=== PATIENT | female | born 1945 | race Caucasian/White ===

== ENCOUNTER 2023-05-01 05:55 | Inpatient (IN) | payer MEDICARE, MEDICAID, SELFPAY ==
[2023-05-01] VITALS (64 sets, daily range): BP systolic 140–193; BP diastolic 78–150; PULSE 98–135; RESP 14–52; TEMP 36.8; O2SAT 91–100; BMI 17.1
--- NOTE | 2023-05-01 06:00 | XRR_ITS ---
PROCEDURE INFORMATION: Exam: XR Chest Exam date and time: 05/01/2023 6:21 AM Age: 77 years old Clinical indication: Cough and dyspnea; Additional info: Dyspnea/cough TECHNIQUE: Imaging protocol: Radiologic exam of the chest. Views: 1 view. COMPARISON: No relevant prior studies available. FINDINGS: Lungs: Unremarkable. No consolidation. Pleural spaces: Unremarkable. No pleural effusion. No pneumothorax. Heart/Mediastinum: Unremarkable. No cardiomegaly. Bones/joints: Unremarkable. XR/XR chest 1V portable [id number] IMPRESSION: No acute findings.
--- NOTE | 2023-05-01 06:02 | W.ED.GENADLT ---
HPI - General Adult General: Chief complaint: Neuro Symptoms/Deficit Stated complaint: AMS Time Seen by Provider: 05/01/23 05:58 Source: patient Mode of arrival: EMS History of Present Illness: 77-year-old female presents to the emergency room via EMS she is cachectic in appearance completely altered unable to give any history. History from EMS per the family she was walking talking behaving normally yesterday and woke up altered this morning. She will cry out with any stimuli but makes no verbal responses. Does not follow any commands. No other medical history is known. There is no history in her old EMR either. 2 nights ago patient began vomiting was mostly bedridden yesterday and this morning was nonresponsive. No report of hematemesis or coffee-ground emesis or hematochezia from EMS. I was able to contact a family member Aruna earl (phone number [phone]). She related that the patient usually lives in [facility] time is very she sees a Dr. Lopez there at [place], [place]. daughter has limited knowledge of her past medical history. She states that the patient usually lives in [place], [place] and was visiting here. She had 2 antibiotics with her Bactrim which was prescribed on May 04, 2023 and clindamycin which was 300 mg 3 times a day prescribed on April 23, 2023 there were 19 tablets left of the clindamycin. These were prescribed by Malcolm Quigley a nurse practitioner at a [facility] with [facility]. The daughter believes it was related to the wound on the back of the left hand but is not completely certain. We did call there and talk to the warehouse team leader they advised us that we would not be able to get any past medical records until tomorrow even if we were able to get family to sign a release today. The daughter related that the patient has a history of asthma hypertension and hypothyroidism. She thinks she may have previously had a stroke she is not aware that she is diabetic has any diagnosis of cancer. She states that over the last several months she has lost a significant amount of weight but she says everyone in her family has a very small body habitus. She does relate that the patient is a smoker and is . Sometime in the last year or 2 the patient had a traumatic injury to her left leg the daughter describes it as having been crushed but she is not sure if there are any fractures. She evidently underwent several procedures for this and there was a question whether or not she would be able to ambulate again but she eventually was able to walk and states that up until 2 days ago patient was ambulating independently. She does believe that the patient has had some kidney and bladder issues in the past but does not have any specific knowledge as to what those were. At one time she was prescribed oxygen but has not been using it regularly to the best of the daughter's knowledge. The daughter states she was given power of civil litigation attorney along with the patient's granddaughter at the time of the leg injury. She states she signed some paperwork at the hospital that restricted her only and that she could not take her mother outside of the state [facility] but she could not tell me anything else about the circumstances of this paperwork or the extent of her power of civil litigation attorney status. She the daughter Aruna is the only living sibling. She does state that she wants her mother to be Do Not Recussitate that they have talked about in the past and the patient did not want to be on a ventilator or have CPR. Onset (ago): unknown Review of Systems General: Reports: ROS unobtainable due to medical condition and ROS unobtainable due to mental status PFS ED PFSH: Medical History (Updated 05/02/23 @ 05:37 by Zain Whitten DO) Crush injury of leg Asthma HTN (hypertension) Hypothyroid Surgical History (Updated 05/01/23 @ 10:11 by Presley Pacheco MD) History of surgery on lower extremity Social History (Updated 05/01/23 @ 10:11 by Presley Pacheco MD) Smoking and tobacco/nicotine status: current every day tobacco/nicotine user Marital status: / Physical Exam Narrative: EXAM NARRATIVE: Patient is extremely cachectic with temporal wasting. Wasting significant F in the face that the motion of the coronoid process of the mandible can be tracked when she moves her mandible. Examination of the back buttocks no decubitus ulcers noted Const: EXAM LIMITATIONS: altered mental status GENERAL APPEARANCE: disheveled, ill appearing, frail appearing and appears older than stated age NUTRITIONAL APPEARANCE: cachectic ORIENTATION/CONSCIOUSNESS: Yes awake HENMT: COMMON NORMALS: normocephalic and atraumatic HEAD & SCALP: normocephalic and atraumatic Resp: COMMON NORMALS: normal respiratory effort, No retractions, No use of accessory muscles and clear to auscultation bilaterally AUSCULTATION: clear to auscultation bilaterally Cardio: COMMON NORMALS: regular rate, regular rhythm and No murmurs present (Cardio) RATE: regular rate RHYTHM: regular rhythm GI: COMMON NORMALS: Soft to palpation and No hepatosplenomegaly present AUSCULTATION: Yes normoactive bowel sounds PALPATION: Yes Soft to palpation, No Tenderness to palpation present (GI), No Guarding due to palpation present (GI) and Yes No hepatosplenomegaly present Extremity: COMMON NORMALS: normal to inspection and capillary refill normal Skin: OTHER: Ulcerated lesion on the dorsum of the left hand granulation tissue at the edges mucous AXicare at the base lesion is full-thickness. It appears to be from self excoriation Course Vital Signs: Vital signs: Vital Signs Temperature 97.5 F L 05/02/23 04:30 Pulse Rate 140 H 05/02/23 04:30 Respiratory Rate 22 H 05/02/23 04:20 Blood Pressure 164/86 05/02/23 04:30 Pulse Oximetry 99 05/02/23 04:30 Oxygen Delivery Me thod Nasal Cannula 05/02/23 04:30 Oxygen Flow Rate 2 05/02/23 04:30 MDM - General Adult Medical Decision Making We attempted to contact the convenience clinic to talk to a provider to try to get some more past medical history and even recent history on this patient however they did not call us back I do not think your convenience clinic was open today. Patient has acute kidney injury she is tachycardic and gets from volume contraction. Cover for sepsis however not finding source of infection at this time. Tox screening negative. Will admit discussed with hospitalist Medical Records I reviewed the patient's medical records. Lab Data I reviewed the patient's lab results. 05/02/23 04:35 05/02/23 04:35 Radiology Impressions Chest X-Ray 05/01/23 06:00 IMPRESSION: No acute findings. Head CT 05/01/23 06:12 IMPRESSION: Negative for acute intracranial pathology. Abdomen/Pelvis CT 05/01/23 07:05 IMPRESSION: 1. Nonobstructing 4.4 mm left renal calculus. 2. Diverticulosis of the sigmoid colon 3. Multiple splenic granulomas 4. Multilevel compression the endplates of thoracic lumbar bodies as described above. This is most severely seen at the L4 level. Laboratory Results WBC 12.21 10^3/uL (3.29-11.43) H 05/01/23 06:20 RBC 3.95 10^6/uL (3.85-5.65) 05/01/23 06:20 Hgb 12.80 g/dL (11.27-16.99) 05/01/23 06:20 Hct 38.4 % (36-47) 05/01/23 06:20 MCV 97.2 fl (85-98) 05/01/23 06:20 MCH 32.4 pg (27-33) 05/01/23 06:20 MCHC 33.3 g/dL (30-55) 05/01/23 06:20 RDW 13.6 % (12.1-15.1) 05/01/23 06:20 Plt Count 270 10^3/cmm (157-399) 05/01/23 06:20 MPV 9.8 fL (7.4-10.4) 05/01/23 06:20 Neut % (Auto) 82.9 % 05/01/23 06:20 Lymph % (Auto) 8.8 % 05/01/23 06:20 Kane % (Auto) 7.2 % 05/01/23 06:20 Eos % (Auto) 0.5 % 05/01/23 06:20 Baso % (Auto) 0.2 % 05/01/23 06:20 Neut # (Auto) 10.12 10^3/uL (1.8-7.7) H 05/01/23 06:20 Lymph # (Auto) 1.1 10^3/uL (0.8-4.8) 05/01/23 06:20 Kane # (Auto) 0.9 10^3/uL (0.2-0.9) 05/01/23 06:20 Eos # (Auto) 0.1 10^3/uL (0.0-0.8) 05/01/23 06:20 Baso # (Auto) 0.0 10^3/uL (0.0-0.1) 05/01/23 06:20 Nucleated RBC % (auto) 0 % 05/01/23 06:20 Nucleated RBCs # 0.0 /100WBC 05/01/23 06:20 PT 13.20 SECONDS (12.1-14.9) 05/01/23 06:20 INR 0.98 (0.8-1.2) 05/01/23 06:20 APTT 20.7 SECONDS (23.9-36.7) L 05/01/23 06:20 Specimen Type Arterial 05/01/23 06:18 Sample Site Brachial, right 05/01/23 06:18 ABG pH 7.35 (7.35-7.45) 05/01/23 06:18 ABG pCO2 44.8 mmHg (35-45) 05/01/23 06:18 ABG pO2 76.4 mmHg (80.0-100.0) L 05/01/23 06:18 ABG PO2/FiO2 Ratio 0 05/01/23 06:18 ABG HCO3 24.5 mmol/L (22-26) 05/01/23 06:18 ABG O2 Saturation 94.3 05/01/23 06:18 ABG Base Excess -1.4 mmol/L (-2.0-2.0) 05/01/23 06:18 Wade Test Pos 05/01/23 06:18 A-a O2 Gradient 9.3 mmHg (5-10) 05/01/23 06:18 Hematocrit 40.3 % (37-47) 05/01/23 06:18 Hgb O2 Saturation 93.1 % (95-100) L 05/01/23 06:18 Carboxyhemoglobin 0.9 %THgb (0.4-20.1) 05/01/23 06:18 Methemoglobin 0.4 % (0.4-1.5) 05/01/23 06:18 Total Hemoglobin 13.2 g/dL (12-16) 05/01/23 06:18 Sodium 143.0 mmol/L (131-143) 05/01/23 06:18 Potassium 4.4 mmol/L (3.5-5.0) 05/01/23 06:18 Glucose 136.0 mg/dL (70-115) H 05/01/23 06:18 Ionized Calcium 1.5 mmol/L (1.1-1.4) H 05/01/23 06:18 O2 Delivery Device Nc 05/01/23 06:18 O2 Liters/Min 2.0 % 05/01/23 06:18 FiO2 28.0 % 05/01/23 06:18 Software Testing Specialist ID [email or web address] 05/01/23 06:18 Sodium 138 mmol/L (136-145) 05/01/23 06:20 Potassium 4.3 mmol/L (3.5-5.1) 05/01/23 06:20 Chloride 99 mmol/L (98-107) 05/01/23 06:20 Carbon Dioxide 25 mmol/L (22-29) 05/01/23 06:20 Anion Gap 18.3 (5-19) 05/01/23 06:20 BUN 55 mg/dL (8-23) H 05/01/23 06:20 Creatinine 4.2 mg/dL (0.5-0.9) H 05/01/23 06:20 GFR Calculation Not Reportable 05/01/23 06:20 Glucose 134 mg/dL (65-115) H 05/01/23 06:20 Calculated Osmolality 303 mOsm/kg (285-295) H 05/01/23 06:20 Lactic Acid 2.1 mmol/L (0.5-2.2) 05/01/23 06:00 Lactic Acid (Sepsis) 2.1 mmol/L (0.5-2.2) 05/01/23 09:25 Calcium 11.7 mg/dL (8.5-10.5) H 05/01/23 06:20 Magnesium 2.0 mg/dL (1.7-2.3) 05/01/23 06:20 Total Bilirubin 0.2 mg/dL (0.15-1.2) 05/01/23 06:20 AST 16 U/L (0-32) 05/01/23 06:20 ALT 12 U/L (0-33) 05/01/23 06:20 Alkaline Phosphatase 79 U/L (35-105) 05/01/23 06:20 Ammonia 35 umol/L (11-51) 05/01/23 09:25 Creatine Kinase 166 U/L (26-192) 05/01/23 08:10 Troponin T Baseline 25 ng/L (0-10) H 05/01/23 06:00 Troponin T 120 Minute 23.12 ng/L (0-10) H 05/01/23 08:13 Delta Troponin T -1.88 ABS# (0-10) L 05/01/23 08:13 Troponin T Hi Sens 6Hr 26.05 ng/L (0-10) H 05/01/23 12:04 Troponin T Hi Sens 6Hr Delta 1.05 ng/L (0-12) 05/01/23 12:04 Total Protein 8.0 g/dL (6.6-8.7) 05/01/23 06:20 Albumin 4.1 g/dL (3.5-5.2) 05/01/23 06:20 Globulin 3.9 g/dL (1.3-4.6) 05/01/23 06:20 Lipase 19 U/L (13-60) 05/01/23 06:20 Vitamin B12 335 pg/mL (232-1245) 05/01/23 08:10 TSH 5.22 uIU/mL (0.27-4.20) H 05/01/23 08:13 Free T4 1.20 ng/dL (0.82-1.77) 05/01/23 08:13 PTH Intact 19.8 pg/mL (15-65) 05/01/23 06:10 Calcium (PTH Intact) 11.4 mg/dL (8.5-10.5) H 05/01/23 06:10 Urine Color Yellow (Yellow) 05/01/23 06:13 Urine Appearance Clear (CLEAR) 05/01/23 06:13 Urine pH 5 (5-7) 05/01/23 06:13 Ur Specific [place] 1.020 (1.005-1.030) 05/01/23 06:13 Urine Protein Trace (Negative) 05/01/23 06:13 Urine Glucose (UA) Norm (Normal) 05/01/23 06:13 Urine Ketones Negative (Negative) 05/01/23 06:13 Urine Blood Neg (Negative) 05/01/23 06:13 Urine Nitrate Negative (Negative) 05/01/23 06:13 Urine Bilirubin 2+ (Negative) H 05/01/23 06:13 Urine Urobilinogen Norm mg/dL (Negative) 05/01/23 06:13 Ur Leukocyte Esterase Negative (Negative) 05/01/23 06:13 Urine RBC None /hpf (0-2) 05/01/23 06:13 Urine WBC None /hpf (0-5) 05/01/23 06:13 Ur Squamous Epith Cells None /hpf (0-5) 05/01/23 06:13 Amorphous Sediment Not Reportable 05/01/23 06:13 Urine Bacteria Trace /hpf (NONE) 05/01/23 06:13 Salicylates < 0.3 mg/dL (3-10) L 05/01/23 06:20 Urine Opiates Screen Negative ng/mL (Negative) 05/01/23 06:13 Acetaminophen < 5.0 ug/mL (10-30) L 05/01/23 06:20 Ur Barbiturates Screen Negative ng/mL (Negative) 05/01/23 06:13 Ur Phencyclidine Scrn Negative ng/mL (Negative) 05/01/23 06:13 Ur Amphetamines Screen Negative ng/mL (Negative) 05/01/23 06:13 U Benzodiazepines Scrn Positive ng/mL (Negative) H 05/01/23 06:13 Urine Cocaine Screen Negative ng/mL (Negative) 05/01/23 06:13 U Marijuana (THC) Screen Negative ng/mL (Negative) 05/01/23 06:13 Ethyl Alcohol < 10 mg/dL (0-10) 05/01/23 06:20 Coronavirus 229E (PCR) Not detected (NOT DETECT) 05/01/23 06:46 Influenza Type A Ag negative (Negative) 05/01/23 06:46 Influenza Type B Ag negative (Negative) 05/01/23 06:46 SARS-CoV-2 (PCR) Not detected (NOT DETECT) 05/01/23 06:46 All radiology interpretation(s) finalized by discharge Discharge Plan Discharge Patient Disposition: Admitted As Inpatient Admit Provider: Presley Pacheco Clinical Impression: Acute encephalopathy, BARAK (acute kidney injury), Hypercalcemia, Hypothyroid, Cachexia Condition: Stable Coding Level of Care Code ED Oracle Etl Developer for Jose Luis Akbar
--- NOTE | 2023-05-01 06:12 | CTR_ITS ---
PROCEDURE INFORMATION: Exam: CT Head Without Contrast Exam date and time: 05/01/2023 6:24 AM Age: 77 years old Clinical indication: Altered mental status/memory loss TECHNIQUE: Imaging protocol: Computed tomography of the head without contrast. Radiation optimization: All CT scans at this facility use at least one of these dose optimization techniques: automated exposure control; mA and/or kV adjustment per patient size (includes targeted exams where dose is matched to clinical indication); or iterative reconstruction. COMPARISON: No relevant prior studies available. RADIATION DOSE METRICS: Total DLP (mGy-cm): 1006.78 FINDINGS: Brain: There is mild cerebral atrophy. There is moderate diffuse heterogeneity of the white matter attenuation, consistent with chronic white matter ischemic changes. Negative for acute intracranial hemorrhage. Negative for intracranial mass. Negative for midline shift of the brain. Lund matter and white matter interfaces are unremarkable. Cerebral ventricles: No ventriculomegaly. Paranasal sinuses: Visualized sinuses are unremarkable. No fluid levels. Mastoid air cells: Visualized mastoid air cells are well aerated. Bones/joints: Unremarkable. No acute fracture. Soft tissues: Unremarkable. CT/CT head wo con* [id number] IMPRESSION: Negative for acute intracranial pathology.
--- NOTE | 2023-05-01 06:13 | ECG_ITS ---
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 Measurements Intervals [place] Rate: 127 P: 71 MI: 166 QRS: 75 QRSD: 86 T: 63 QT: 396 QTc: 577 Interpretive Statements SINUS TACHYCARDIA ST DEVIATION AND MODERATE T-WAVE ABNORMALITY, CONSIDER ANTEROLATERAL ISCHEMIA [-0.1+ mV T-WAVE IN V3-V6] ST DEVIATION AND MARKED T-WAVE ABNORMALITY, CONSIDER INFERIOR ISCHEMIA [-0.5+ mV T-WAVE IN II/aVF] No previous ECG available for comparison Electronically Signed On 05-01-2023 8:33:55 DOORMAKER by Ajit Cornejo M.D. [id number] f
[2023-05-01 06:24] LABS: ABG PCO2 44.8 mmHg (35-45); ABG PH Result 7.35 (7.35-7.45); Alveolar-Arterial Oxygen Gradi 9.3 mmHg (5-10); Arterial Blood Gas Hematocrit 40.3 % (37-47); Base Excess ABG -1.4 mmol/L (-2.0-2.0); Blood Gas Allen Test Pos; Blood Gas Sample Site Brachial, right; Blood Gas Sample Type Arterial; Carboxyhemoglobin 0.9 %THgb (0.4-20.1); HCO3 ABG 24.5 mmol/L (22-26); HGB O2 Sat 93.1 % (95-100); Ionized Calcium Level - ABG 1.5 mmol/L (1.1-1.4); Methemoglobin 0.4 % (0.4-1.5); Oxygen Device NC; Oxygen Saturation ABG 94.3; PO2 ABG 76.4 mmHg (80.0-100.0); PO2 FiO2 Ratio Arterial Blood 0; Potassium Level - ABG 4.4 mmol/L (3.5-5.0); Total Hemoglobin 13.2 g/dL (12-16)
[2023-05-01 06:31] LABS: Basophils % 0.2 %; Eosinophils # 0.1 10^3/uL (0.0-0.8); Eosinophils % 0.5 %; Hematocrit 38.4 % (36-47); Lymphocytes # 1.1 10^3/uL (0.8-4.8); Lymphocytes % 8.8 %; Mean Corpuscular HGB Conc 33.3 g/dL (30-55); Mean Corpuscular Hemoglobin 32.4 pg (27-33); Mean Corpuscular Volume 97.2 fl (85-98); Mean Platelet Volume 9.8 fL (7.4-10.4); Monocytes # 0.9 10^3/uL (0.2-0.9); Monocytes % 7.2 %; Neutrophils # 10.12 10^3/uL (1.8-7.7); Neutrophils % 82.9 %; Nucleated Red Blood Cells % 0 %; Platelet Count 270 10^3/cmm (157-399); Red Blood Count 3.95 10^6/uL (3.85-5.65); Red Cell Distribution Width 13.6 % (12.1-15.1); White Blood Count 12.21 10^3/uL (3.29-11.43)
[2023-05-01] MEDS: sodium chloride 0.9% 1,000 ML 999 ML IV ×2 (06:38→09:26)
[2023-05-01 06:48] LABS: Alanine Aminotransferase 12 U/L (0-33); Albumin Level 4.1 g/dL (3.5-5.2); Alkaline Phosphatase 79 U/L (35-105); Anion Gap 18.3 (5-19); Aspartate Amino Transferase 16 U/L (0-32); Blood Urea Nitrogen 55 mg/dL (8-23); Calcium 11.7 mg/dL (8.5-10.5); Carbon Dioxide 25 mmol/L (22-29); Chloride 99 mmol/L (98-107); Creatine Phosphokinase 120 U/L (26-192); Globulin 3.9 g/dL (1.3-4.6); Glucose 134 mg/dL (65-115); Lipase 19 U/L (13-60); Osmolality Calculated 303 mOsm/kg (285-295); Potassium 4.3 mmol/L (3.5-5.1); Sodium 138 mmol/L (136-145); Total Bilirubin 0.2 mg/dL (0.15-1.2)
[2023-05-01 06:55] LABS: Add Urine Culture? No; Add Urine Microscopic? YES; Bacteria Urine TRACE /hpf; Bilirubin Urine 2+ (Negative); Blood Urine Neg (Negative); Glucose Urine UA Norm (Normal); Ketones Urine Negative (Negative); Leukocyte Esterase Urine Negative (Negative); Nitrate Urine Negative (Negative); Protein Urine Trace (Negative); Urine Appearance Clear (CLEAR); Urine Color Yellow (Yellow); Urobilinogen Urine Norm (Negative); pH Urine 5 (5-7)
[2023-05-01 07:04] LABS: Troponin(5th) Baseline 25 ng/L (0-10)
[2023-05-01 07:05] LABS: Lactic Sepsis W/Reflex 2.1 mmol/L (0.5-2.2)
--- NOTE | 2023-05-01 07:05 | CTR_ITS ---
PROCEDURE INFORMATION: Exam: CT Abdomen And Pelvis Without Contrast Exam date and time: 05/01/2023 7:24 AM Age: 77 years old Clinical indication: Abdominal pain; Generalized; Patient HX: AMS unable to get history PT non verbal TECHNIQUE: Imaging protocol: Computed tomography of the abdomen and pelvis without contrast. Radiation optimization: All CT scans at this facility use at least one of these dose optimization techniques: automated exposure control; mA and/or kV adjustment per patient size (includes targeted exams where dose is matched to clinical indication); or iterative reconstruction. COMPARISON: CR (CHEST, ) 05/01/2023 6:21 AM RADIATION DOSE METRICS: Total DLP (mGy-cm): 459.15 FINDINGS: Coronary arteries: Prominent calcifications are seen coronary arteries. Liver: Normal. No mass. Gallbladder and bile ducts: Status post cholecystectomy. The common bile duct is prominent measuring 10.1 mm in its midportion tapering to normal caliber at the level of the ampulla. Pancreas: Normal. No ductal dilation. Spleen: Multiple calcifications are seen in the spleen compatible with calcified splenic granulomas. Adrenal glands: Normal. No mass. Kidneys and ureters: There is a prominent 4.4 mm nonobstructing left renal calculus seen in the upper pole posteriorly. Stomach and bowel: Diverticula are present along the sigmoid colon. There are no inflammatory changes seen to suggest diverticulitis. Appendix: No evidence of appendicitis. Intraperitoneal space: Unremarkable. No free air. No significant fluid collection. Vasculature: Calcifications are present within the thoracic and abdominal aorta, iliac arteries and femoral arteries bilaterally and in branches of the celiac and superior mesenteric arteries. Lymph nodes: Unremarkable. No enlarged lymph nodes. Urinary bladder: Unremarkable as visualized. Reproductive: Unremarkable as visualized. Bones/joints: There is mild compression T10 and T11 vertebral bodies, moderate compression superior endplate L1, moderate to severe compression the superior and inferior endplates L2, severe compression of the L4 vertebral body and moderate compression of the superior endplate L5 likely secondary to diffuse demineralization. Soft tissues: Unremarkable. CT/CT abdomen pelvis wo con [id number] IMPRESSION: 1. Nonobstructing 4.4 mm left renal calculus. 2. Diverticulosis of the sigmoid colon 3. Multiple splenic granulomas 4. Multilevel compression the endplates of thoracic lumbar bodies as described above. This is most severely seen at the L4 level.
[2023-05-01 07:31] LABS: Influenza A by IFA negative (Negative); Influenza B by IFA negative (Negative)
[2023-05-01 07:50] LABS: INR 0.98 (0.8-1.2)
[2023-05-01 07:51] LABS: Partial Thromboplastin Time 20.7 SECONDS (23.9-36.7)
[2023-05-01 07:55] LABS: Amphetamines Screen Urine Negative (Negative); Barbiturates Screen Urine Negative (Negative); Benzodiazepines Screen Urine Positive (Negative); Cocaine Screen Urine Negative (Negative); Opiate Screen Urine Negative (Negative); PCP Screen Urine Negative (Negative); THC Screen Urine Negative (Negative)
[2023-05-01 08:02] LABS: Acetaminophen < 5.0 ug/mL (10-30); Alcohol Level < 10 mg/dL (0-10); Salicylate < 0.3 mg/dL (3-10)
--- NOTE | 2023-05-01 08:13 | ECG_ITS ---
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 Measurements Intervals [place] Rate: 122 P: 0 UT: 0 QRS: 79 QRSD: 94 T: 210 QT: 308 QTc: 440 Interpretive Statements Sinus TACHYCARDIA with significant artifact and absence of leads V1 and V2 ST DEVIATION AND MODERATE T-WAVE ABNORMALITY, CONSIDER LATERAL ISCHEMIA [-0.1+ mV T-WAVE IN I/aVL/V5/V6] ST DEVIATION AND MODERATE T-WAVE ABNORMALITY, CONSIDER INFERIOR ISCHEMIA [-0.1+ mV T-WAVE IN II/aVF] WARNING: DATA QUALITY MAY AFFECT INTERPRETATION Compared to ECG 05/01/2023 06:14:47 T-wave abnormality still present Possible ischemia still present Electronically Signed On 05-01-2023 8:39:21 CAMPAIGN MANAGER by Ajit Cornejo M.D. [id number]
--- NOTE | 2023-05-01 08:13 | PC.PHAR ---
Addendum entered by Elizabeth Morrison 05/01/23 10:11: STILL NO ANSWER WHEN CALLING BR[facility] NO MEDS PULL UP ON EXT MED HISTORY Addendum entered by Elizabeth Morrison 05/01/23 09:01: called [facility] again no answer Original Note: pt unable to verify medications-no meds pull up on ext med history-called pts daughter brigida [phone] left message
[2023-05-01 08:40] LABS: Reflex Lactate Order REFLEX LACTIC ORDERD
[2023-05-01 08:54] LABS: Troponin 5 2HR 23.12 ng/L (0-10)
[2023-05-01 08:54] LABS: Adenovirus Not Detected (NOT DETECT); Chlamydia Pneumoniae Not Detected (NOT DETECT); Coronavirus 229E,HKU1,NL63,OC4 Not Detected (NOT DETECT); Human Metapneumovirus Not Detected (NOT DETECT); Human Rhinovirus/Enterovirus Not Detected (NOT DETECT); Influenza A Not Detected (NOT DETECT); Influenza A H1 Not Detected (NOT DETECT); Influenza A H1-2009 Not Detected (NOT DETECT); Influenza A H3 Not Detected (NOT DETECT); Influenza B Not Detected (NOT DETECT); Mycoplasma Pneumoniae Not Detected (NOT DETECT); Parainfluenza Virus Type 1 Not Detected (NOT DETECT); Parainfluenza Virus Type 2 Not Detected (NOT DETECT); Parainfluenza Virus Type 3 Not Detected (NOT DETECT); Parainfluenza Virus Type 4 Not Detected (NOT DETECT); Respiratory Syncytial Virus A Not Detected (NOT DETECT); Respiratory Syncytial Virus B Not Detected (NOT DETECT); SARS-COV-2 Not Detected (NOT DETECT)
[2023-05-01 08:55] LABS: Troponin 5 2HR Delta -1.88 ABS# (0-10)
[2023-05-01 09:06] LABS: Thyroid Stimulating Hormone 5.22 uIU/mL (0.27-4.20)
[2023-05-01 09:50] LABS: Ammonia 35 umol/L (11-51); Lactic Acid level (Lactate) 2.1 mmol/L (0.5-2.2)
--- NOTE | 2023-05-01 10:10 | P.HP_ITS ---
Providers/Chief Complaint 2 Chief Complaint: AMS History of Present Illness Brought in by EMS emaciated and confused. Cannot provide history or Review of systems. Screams out intermittently. Reportedly was up and about and interacting with grandkids 2 days ago per her daughter but does not live here, was visiting, previously living with her granddaughter in [place]. Has a number of medications but the list is unknown, daughter does not know them, patient only brought a few with her. Granddaughter with whom she was living is currently in substance use rehabilitation. Last hospital stay [facility] which was contacted by ER provider, but would not give us any information until Tuesday. Patient was recently on antibiotics thought by her daughter related to wound on her hand. Neomycin, then Bactrim. Patient is . Daughter is her only biological child. Reportedly had been named as power of commercial attorney by the patient, and granddaughter was on the paperwork reportedly as well. Review of Systems 2 General: Reports: ROS unobtainable due to mental status Medications/Allergies Home Medications Medication Instructions Recorded Confirmed Last Taken Type Unable to Assess 05/01/23 05/01/23 Unknown History PFSH Acute 2 PFSH: Medical History (Updated 05/01/23 @ 10:33 by Presley Pacheco MD) Crush injury of leg Asthma HTN (hypertension) Hypothyroid Surgical History (Updated 05/01/23 @ 10:11 by Presley Pacheco MD) History of surgery on lower extremity Social History (Updated 05/01/23 @ 10:11 by Presley Pacheco MD) Smoking and tobacco/nicotine status: current every day tobacco/nicotine user Marital status: / Vitals/I&O/Wt Last Vital Signs Pulse 121 H 05/01/23 08:27 Resp 16 05/01/23 08:27 BP 140/109 05/01/23 08:27 Pulse Ox 99 05/01/23 08:27 O2 Del Method Nasal Cannula 05/01/23 08:27 O2 Flow Rate 3 05/01/23 08:27 04/30/23 05/01/23 05/01/23 22:59 06:59 14:59 Intake Total 1000 / 1000 Balance 1000 / 1000 Weight last 48 hrs Weight 36.287 kg Physical Exam 2 Narrative: Various multiple bracelets and rings. Const: COMMON NORMALS: negative for patient oriented x3 GENERAL APPEARANCE: not cooperative NUTRITIONAL APPEARANCE: cachectic O RIENTATION/CONSCIOUSNESS: Yes awake and Yes confused HENMT: COMMON NORMALS: oropharynx normal Eye: OTHER: Eyes open, blinks occasionally, does not make eye contact. Pupils symmetrical. Neck/C-Spine: COMMON NORMALS: no JVD Resp: COMMON NORMALS: normal respiratory effort and clear to auscultation bilaterally AUSCULTATION: clear to auscultation bilaterally Cardio: COMMON NORMALS: no JVD, regular rhythm, S1 normal heart sound present, S2 normal heart sound present and No murmurs present (Cardio) RATE: t achycardic RHYTHM: regular rhythm HEART SOUNDS: S1 normal heart sound present and S2 normal heart sound present GI: COMMON NORMALS: Normal to inspection, nondistended, normoactive bowel sounds present, Soft to palpation and non-tender PALPATION: Yes Soft to palpation Extremity: COMMON NORMALS: no joint enlargement and no pedal edema N ARRATIVE EXTREMITY EXAM: L hand dorsal wound w eschar OTHER: Prior injury/scar LLE Neuro: COMMON NORMALS: moves all extremities; negative for patient oriented x3 SENSORIUM/ORIENTATION: Yes alert Skin: NARRATIVE SKIN EXAM: Thin dry skin. Data 05/01/23 06:20 05/01/23 06:20 A&P Assessment and plan (1) Acute encephalopathy: Unclear cause of acute encephalopathy. Possibly acute metabolic encephalopathy, possibly toxic encephalopathy with medication toxicity or withdrawal. Cannot provide history, history had to be obtained from outside sources. Is noted to have acute kidney injury, on May need unknown medications. Possible medication toxicity versus withdrawal. UDS reviewed, noted positive for benzodiazepines. Additionally meets SIRS criteria with WBC 12.21, sinus tachycardia, bronchitis, possible mild asthma exacerbation, no pneumonia, but possible aspiration antibiotic-loaded. For now empirically covered with Zosyn. Lactic acid reviewed. Reviewed vitals, CBC, INR, PTT, ABG, CMP, troponin, albumin, lipase, TSH noted with abnormality 5.22. Check free T4. History of hypothyroidism. Unknown if on and/dose of levothyroxine. Reviewed ER note, discussed with ER physician. Reviewed rapid influenza, COVID PCR panel. Rehydrated. Check vitamin B12. Noted hypercalcemia of unclear etiology. Total protein not elevated. Check PTH. Vitamin D. One-to-one sitter as she has been climbing out of bed. (2) BARAK (acute kidney injury): Reviewed UA, not suggestive of UTI, no hematuria. Reviewed CT abdomen pelvis, nonobstructing kidney stone noted. Appears dehydrated. Receiving fluid challenge. Obtain urine studies. Follow-up kidney function. (3) SIRS (systemic inflammatory response syndrome): Unclear cause of SIRS. Leukocytosis, sinus tachycardia 120s. No obvious source of sepsis. Does not appear to be vomiting, no diarrhea noted in diaper. Afebrile. Grossly no focal neurologic abnormality. CT of the head unremarkable. Does appear to have bronchitis, viral panel unremarkable. Possible aspiration. For now. Coverage with Zosyn, additionally recent skin infection for which she was being covered with clindamycin, Bactrim, for now provide empiric coverage with daptomycin. Blood cultures have been collected. Follow-up. Monitor for diarrhea with risk of C. difficile. (4) Hypercalcemia: Unclear cause of hypercalcemia. Total protein appears normal. Check PTH, vitamin D. Obtain medication list when possible. Give IV hydration. Reassess calcium. Compression fractures in the spine. Will obtain serum light chains, urine light chains, SPEP, immunofixation. (5) Hypothyroid: TSH reviewed, 5.22. Check free T4. Obtain medication list when available to see if and what dose she takes of levothyroxine. (6) Compression fracture: Incidentally noted compression fractures in the spine. With hypercalcemia. Will obtain serum light chains, urine light chains, SPEP, immunofixation. Follow-up with assessment for osteoporosis. Consider treatment (7) Patient taking unknown medications: This medications if become available through family, otherwise hopefully it may be possibly obtained from records from [facility] tomorrow. They declined to provide any information today when requested from the ER. (8) Bronchitis: Viral PCR panel reviewed. Add scheduled and as needed DuoNebs. Chest x-ray reviewed. No pneumonia. Possible aspiration. Meet SIRS criteria. Cover with Zosyn for now. (9) Cachexia: Appears to have severe malnutrition, height is unknown, BMI not yet available, weight is 36 kg, thin, masseters, severe sarcopenia. For now start IV hydration. Nutritional support when able to tolerate oral intake or may require parenteral nutritional support if that was something consistent with her goals of care. Case management consultation. Plan Splenic granulomas: Incidentally found on CT abdomen pelvis Nephrolithiasis: Incidentally found on CT abdomen pelvis Left hand wound: Empirically continue antibiotic coverage with Zosyn for now. As she had been on clindamycin, Bactrim, seems MRSA coverage was desired, will add dapto for now. Hold off on Zosyn with vancomycin due to kidney dysfunction, risk of further kidney injury, renal failure. Avoid linezolid due to unknown medications, risk of serotonin syndrome. Check CK, monitor for rhabdomyolysis risk with daptomycin. Will need to obtain records from [facility] tomorrow, they would not give us any information today for Asthma: Possible exacerbation, noted some rhonchi, wheezing, bronchitis at least. Possible component of asthma exacerbation. Add scheduled and as needed DuoNebs. Viral PCR reviewed. HTN: Monitor blood pressure. Will add hydralazine as needed until can start some oral medications. Code status: Patient reportedly would not want CPR or intubation in case of cardiopulmonary arrest. Confirm w patient if/when becomes more alert. Attestations 2 Medical Necessity Statement*: Admission of over 2 midnights anticipated for assessment and management of AMS, acute encephalopathy, hypercalcemia, malnutrition, other medical problems as above. Diagnoses Acute encephalopathy G93.40 BARAK (acute kidney injury) N17.9 SIRS (systemic inflammatory response syndrome) R65.10 Hypercalcemia E83.52 Hypothyroid E03.9 Compression fracture Patient taking unknown medications Z79.899 Bronchitis J40 Cachexia R64
--- NOTE | 2023-05-01 12:13 | ECG_ITS ---
[facility] Test Date: 2023-05-01 Pat Name: Amanda Waldron Department: Room: Gender: Female Global Consumer Sector Vice President: : 1945 Requested By: Zain Hess Order Number: [id number] Reading MD: Ajit Cornejo M.D. Measurements Intervals [place] Rate: 120 P: 78 NV: 192 QRS: 78 QRSD: 79 T: 82 QT: 418 QTc: 591 Interpretive Statements SINUS TACHYCARDIA with significant underlying baseline artifact Compared to ECG 05/01/2023 06:14:47 ST (T wave) deviation still present T-wave abnormality still present Possible ischemia still present Electronically Signed On 05-01-2023 8:40:35 ACCOUNTANCY PROFESSOR by Ajit Cornejo M.D. [id number]
--- NOTE | 2023-05-01 12:22 | PC.NURSE ---
Patient's daughter, Aruna Cruz, arrives to ED after Dr. Whitten spoke with her by phone to obtain more health information. Aruna Cruz states that patient had lived with her granddaughter, Aruna Bishop, in [place], [place]. She states Aruna Bishop has been in drug rehab treatment for 3-4 months, and in the meantime patient has been living alone since in [facility] at Aruna Bishop residence since then. Address as follows: [address] [address] She states she thinks she has home health services in [place] who come in the home to help care for her sometimes. She provided the granddaughter's rehab facility information as follows: [facility] [place] [facility] [place] address provided is as follows: [address] [place], [address] Aruna Cruz states to her knowledge, the patient had been able to walk and talk a few days ago. Upon assessment, Patients bilateral upper and lower extremities are contracted, the top of her right hand has a draining open sore approximately half-dollar size, hand is swollen and tender (patient shouts when the wound is cleaned). Patient responds to painful stimuli only. She tends to gaze, does not make eye contact. Non-verbal, intermittent shouting, not able to be redirected. Patient appears to be malnourished with gaunt appearance, visible pulsating facial artery observed over bilateral cheekbones. Patients daughter, Aruna Cruz, stayed in room approximately 30 seconds, provided nurse phone numbers and additional information, then left.
[2023-05-01 12:43] LABS: Troponin 5 6HR 26.05 ng/L (0-10); Troponin 5 6HR Delta 1.05 ng/L (0-12)
--- NOTE | 2023-05-01 12:51 | PC.NURSE ---
[facility] patient's prescriptions are typically filled at: [facility] [place], [place] [phone] Attempted to contact pharmacy to obtain medication list, but unfortunately the pharmacy is closed until Tuesday.
[2023-05-01] MEDS: sodium chloride 0.9% 1,000 ML 75 ML IV (13:33)
[2023-05-01] MEDS: piperacillin-tazobactam 3.375 GM in sodium chloride 0.9% (plus) 50 ML IV (13:39)
[2023-05-01] MEDS: pantoprazole 40 mg SDV IVP (13:40)
[2023-05-01] MEDS: heparin 5,000 unit/mL INJ 1 mL 5000 UNIT SUBCUT (13:41)
[2023-05-01] MEDS: hyDRALAzine 20 mg/mL INJ 1 mL 2.5 MG IVP (13:46)
[2023-05-01 14:15] LABS: Calcium 11.4 mg/dL (8.5-10.5)
[2023-05-01 14:15] LABS: Creatine Phosphokinase 166 U/L (26-192)
[2023-05-01 14:19] LABS: Parathyroid Hormone 19.8 pg/mL (15-65)
[2023-05-01 14:29] LABS: Vitamin B12 335 pg/mL (232-1245)
[2023-05-01] MEDS: ipratropium-albuterol 3 mL Neb INHALATION ×2 (15:33→20:08)
--- NOTE | 2023-05-01 16:29 | PC.NURSE ---
REceived patient from ER staff at 1316. BP: 191/124, SPO2: 100% on 2L NC, HR: 132, Temp: 98.3. Patient is randomly and frequently yelling, otherwise no meaningful responses. Patient appears to be malnourished, many bony prominences. Nurse contacted Dr damico for treatment of hypertension.
[2023-05-01 17:23] LABS: Glucose Point of Care 119 mg/dL (70-110)
--- NOTE | 2023-05-01 18:29 | PC.NURSE ---
Shift Summary: Uneventful shift. Patient came to ICU shortly after 1pm. Has remained in bed throughout shift. James catheter started. She has been yelling out incomprehensibly for most of the shift and staring off blankly. Near end of shift she started looking towards people who entered room and tracks you with her eyes, and has started yelling for Aruna, her daughter. 650 mL of urine output. Medical record request sent to [facility] (fax [phone]) to try and obtain home medication list. Her pharmacy is [facility], [place], [place], , but they were closed as it is tuesday, nurse may be able to call tomorrow to obtain home med list.
[2023-05-01 21:21] LABS: Glucose Point of Care 110 mg/dL (70-110)
[2023-05-01] MEDS: morphine 4 mg/mL SDV 1 mL 2 MG IVP (23:02)
[2023-05-02] VITALS (95 sets, daily range): BP systolic 123–202; BP diastolic 70–132; PULSE 85–140; RESP 14–59; TEMP 36.4–37.6; O2SAT 95–100; BMI 16.0
[2023-05-02] MEDS: heparin 5,000 unit/mL INJ 1 mL 5000 UNIT SUBCUT (00:23)
[2023-05-02] MEDS: piperacillin-tazobactam 3.375 GM in sodium chloride 0.9% (plus) 50 ML IV ×2 (00:23→13:03)
[2023-05-02] MEDS: hyDRALAzine 20 mg/mL INJ 1 mL 2.5 MG IVP (00:38)
[2023-05-02] MEDS: sodium chloride 0.9% 1,000 ML 75 ML IV (02:14)
--- NOTE | 2023-05-02 03:11 | ECG_ITS ---
[facility] Test Date: 2023-05-02 Pat Name: Amanda Waldron Department: Room: ICU12 Gender: Female Sql Consultant: : 1945 Requested By: Presley Pacheco Order Number: [id number] Reading MD: Ajit Cornejo M.D. Measurements Intervals [place] Rate: 134 P: 81 MN: 151 QRS: 74 QRSD: 80 T: 83 QT: 331 QTc: 495 Interpretive Statements SINUS TACHYCARDIA SEPTAL MYOCARDIAL INFARCTION , OF INDETERMINATE AGE [40+ ms Q WAVE IN V1/V2] Compared to ECG 05/01/2023 08:22:53 Myocardial infarct finding now present Electronically Signed On 05-02-2023 9:53:44 CLINICAL PHARMACIST by Ajit Cornejo M.D. [id number]
--- NOTE | 2023-05-02 03:32 | PC.NURSE ---
Tachycardia Patient's HR ranging from 120-130 while intermittently increasing to 140 sinus tach. Additionally, at approximately 0240, patient's HR increased to 170. Dr. Elizabeth contacted and order received to obtain an ekg, bmp, as well as a mag level. EKG performed; cmp and mag level previously ordered for AM labs.
[2023-05-02] MEDS: morphine 4 mg/mL SDV 1 mL 2 MG IVP ×2 (04:20→22:38)
[2023-05-02 05:01] LABS: Basophils % 0.2 %; Eosinophils % 0.4 %; Hematocrit 35.4 % (36-47); Lymphocytes # 0.8 10^3/uL (0.8-4.8); Lymphocytes % 7.4 %; Mean Corpuscular HGB Conc 32.8 g/dL (30-55); Mean Corpuscular Hemoglobin 31.5 pg (27-33); Mean Corpuscular Volume 96.2 fl (85-98); Mean Platelet Volume 9.5 fL (7.4-10.4); Monocytes # 0.7 10^3/uL (0.2-0.9); Monocytes % 6.7 %; Neutrophils # 8.99 10^3/uL (1.8-7.7); Neutrophils % 84.7 %; Nucleated Red Blood Cells % 0 %; Platelet Count 205 10^3/cmm (157-399); Red Blood Count 3.68 10^6/uL (3.85-5.65); Red Cell Distribution Width 13.7 % (12.1-15.1)
[2023-05-02 05:15] LABS: Alanine Aminotransferase 13 U/L (0-33); Albumin Level 3.9 g/dL (3.5-5.2); Alkaline Phosphatase 80 U/L (35-105); Anion Gap 18.5 (5-19); Aspartate Amino Transferase 23 U/L (0-32); Blood Urea Nitrogen 35 mg/dL (8-23); Calcium 9.5 mg/dL (8.5-10.5); Carbon Dioxide 22 mmol/L (22-29); Chloride 107 mmol/L (98-107); Globulin 3.8 g/dL (1.3-4.6); Glucose 104 mg/dL (65-115); Magnesium 1.3 mg/dL (1.7-2.3); Osmolality Calculated 304 mOsm/kg (285-295); Potassium 4.5 mmol/L (3.5-5.1); Sodium 143 mmol/L (136-145); Total Bilirubin 0.5 mg/dL (0.15-1.2); Total Protein 7.7 g/dL (6.6-8.7)
--- NOTE | 2023-05-02 05:35 | PC.NURSE ---
Magnesium Patient's magnesium level decreased to 1.[address] Elizabeth contacted and order received for 2 gm magnesium sulfate IV once now. See MAR for details.
--- NOTE | 2023-05-02 05:57 | PC.NURSE ---
Hematuria Patient's urine noted to be bright red. Dr. Elizabeth notified; order received to place subq heparin on hold.
[2023-05-02] MEDS: magnesium sulfate premix 2 GM/50 ML PIGGYBACK IV (06:23)
[2023-05-02] MEDS: ipratropium-albuterol 3 mL Neb INHALATION ×2 (08:35→12:01)
--- NOTE | 2023-05-02 12:49 | USCV_ITS ---
Chivo Amanda Age: 77 Gender: F : 1945 Exam Date: 05/02/2023 21:31 Ordering Phys: Amilcar Farris MD Technologist: JOSEF Exam Location: [facility] [place] Indication: new CVA, left-sided weakness. long-term smoker, continues smoking. RIGHT neck linear scar suggests prior endart. BP: 135 / 84 HR: 105 Rhythm: Sinus Technical Quality: Adequate MEASUREMENTS (Male / Female) Normal Values 2D ECHO LV Diastolic Diameter PLAX 2.1 cm 4.2 - 5.9 / 3.9 - 5.3 cm LV Systolic Diameter PLAX 1.6 cm IVS Diastolic Thickness 1.5 cm 0.6 - 1.0 / 0.6 - 0.9 cm IVS Systolic Thickness 1.7 cm LVPW Diastolic Thickness 1.0 cm 0.6 - 1.0 / 0.6 - 0.9 cm LVPW Systolic Thickness 1.2 cm LVOT Diameter 1.4 cm LV Ejection Fraction 2D Teich 55.4 % LV Ejection Fraction MOD 2C 59.5 % LV Ejection Fraction 2C AL 60.9 % LA Diameter 2.8 cm LA Width 3.0 cm LA Height 4.9 cm RA Width 2.4 cm RA Height 2.9 cm Aorta at Sinotubular Diameter 2.5 cm IVC Diameter 1.3 cm M-MODE Aortic Annulus Diameter 2.5 cm LA Ao Ratio MM 1.1 MV E Point Septal Separation 0.3 cm DOPPLER AV Peak Velocity 120.0 cm/s LVOT Peak Velocity 134.0 cm/s AV Area Cont Eq vti 1.7 cm squared AV Area Cont Eq pk 1.8 cm squared MV Peak Velocity 146.0 cm/s MV Area PHT 5.1 cm squared Mitral E to A Ratio 0.6 MV E' Velocity 42.0 cm/s Mitral E to MV E' Ratio 9.1 Mitral E to LV E' Lateral Ratio 13.0 Mitral E to LV E' Septal Ratio 7.0 TV Peak E Velocity 41.0 cm/s PV Peak Velocity 124.0 cm/s RV Acceleration Time 0.1 s RV Ejection Time 0.3 s RV AcT/ET 0.4 FINDINGS Left Ventricle Normal left ventricular size and systolic function, EF 55 %. No regional wall motion abnormalities. Right Ventricle The right ventricle is normal in size and function. Right Atrium The right atrium is normal in size. Left Atrium The left atrium is normal in size. Mitral Valve Trace mitral valve regurgitation. Aortic Valve Thickened aortic valve. Tricuspid Valve No gross abnormalities noted Pulmonic Valve Pulmonic valve not well visualized. Pericardium Normal pericardium without effusion. Aorta Normal ascending aorta dimension. IVC Normal inferior vena cava. CONCLUSIONS Normal left ventricular size and systolic function, EF 55 %. No regional wall motion abnormalities. Trace mitral valve regurgitation. Thickened aortic valve. There is no pericardial effusion. There are no intracardiac masses. No similar previous studies are available for comparison Dr Christen Ya MD FACC (Electronically Signed) Final Date: 03 May 2023 09:32 S
[2023-05-02] MEDS: pantoprazole 40 mg SDV IVP (13:03)
--- NOTE | 2023-05-02 13:09 | PC.NURSE ---
Dr. Farris verbal order at bedside to not give one time dose of labetalol 10 mg.
[2023-05-02] MEDS: dextrose 5%-sod chloride 0.9% 1,000 ML 50 ML IV (13:12)
[2023-05-02] MEDS: metoprolol tartrate 1 mg/1 mL SDV 5 mL 5 MG IVP ×3 (13:14→21:44)
[2023-05-02 13:16] LABS: Iron 18 ug/dL (37-145); Percent Saturation 7.5 % (20-50); Total Iron Binding Capacity 239 mcg/dl; Unsaturated Iron Binding 221 ug/dL (112-347)
[2023-05-02 13:23] LABS: Procalcitonin 0.13 ng/mL (0-0.5)
--- NOTE | 2023-05-02 15:09 | PC.NURSE ---
Patient offered some ice chips one chip at a time, Patient unable to swallow melted ice, patient stated, I can't swallow when the ice melts. oral suctioning performed, thick mucus removed from back of mouth that contained several strands of hair. Patient again states, I can't swallow. Patient repeatedly states, help me. when asked if she is in pain she says, no and when asked what this nurse can do to help her she states, I don't know, and continues to call for help. Patient answerers orientation questions appropriately at this time.
[2023-05-02] MEDS: baclofen 10 mg Tablet PO (16:06)
--- NOTE | 2023-05-02 18:26 | P.PN_ITS ---
Subjective 2 Subjective: Hospital course, labs appreciated. Seen and ICU today. As per nursing staff patient mentation has been improving slightly. Today morning on examination she seemed extremely dehydrated, is awake but alert to self, being in hospital, her family members but is slow to respond. Patient otherwise has remained hemodynamically stable and afebrile though blood pressures seem to be slightly elevated. Vitals/I&O/Wt Last Vital Signs Temp 97.7 F 05/02/23 16:45 Pulse 95 05/02/23 18:00 Resp 17 05/02/23 18:00 BP 170/81 05/02/23 18:00 Pulse Ox 99 05/02/23 18:00 O2 Del Method Nasal Cannula 05/02/23 18:00 O2 Flow Rate 2 05/02/23 15:27 05/02/23 05/02/23 05/02/23 06:59 14:59 22:59 Intake Total 1025 / 3168.333 50 / 50 80 / 130 Output Total 1775 / 2425 1050 / 1050 Balance -750 / 743.333 50 / 50 -970 / -920 Weight last 48 hrs Weight 35.97 kg Weight 38.465 kg Weight 36.287 kg Physical Exam 2 Narrative: Various multiple bracelets and rings. Const: COMMON NORMALS: alert; negative for patient oriented x3 GENERAL APPEARANCE: not cooperative N UTRITIONAL APPEARANCE: cachectic ORIENTATION/CONSCIOUSNESS: Yes awake and Yes confused HENMT: COMMON NORMALS: oropharynx normal Eye: OTHER: Eyes open, blinks occasionally, does not make eye contact. Pupils symmetrical. Neck/C-Spine: COMMON NORMALS: no JVD Resp: COMMON NORMALS: normal respiratory effort and clear to auscultation bilaterally AUSCULTATION: clear to auscultation bilaterally Cardio: COMMON NORMALS: no JVD, regular rhythm, S1 normal heart sound present, S2 normal heart sound present and No murmurs present (Cardio) RATE: t achycardic RHYTHM: regular rhythm HEART SOUNDS: S1 normal heart sound present and S2 normal heart sound present GI: COMMON NORMALS: Normal to inspection, nondistended, normoactive bowel sounds present, Soft to palpation and non-tender PALPATION: Yes Soft to palpation Extremity: COMMON NORMALS: no joint enlargement and no pedal edema N ARRATIVE EXTREMITY EXAM: L hand dorsal wound w eschar OTHER: Prior injury/scar LLE Neuro: COMMON NORMALS: moves all extremities; negative for patient oriented x3 SENSORIUM/ORIENTATION: Yes alert Skin: NARRATIVE SKIN EXAM: Thin dry skin. Urinary Catheter Management: James: Cath Placed During This Visit: yes Reason for Continuing Indwelling Catheter: Accurate Measurement of Urinary Output in Critically Ill Patients Urinary Catheter Date of Insertion: 05/01/23 Urinary Catheter Time of Insertion: 17:00 Data 05/02/23 04:35 05/02/23 04:35 Micro: Microbiology 05/02/23 12:55 Legionella Urinary Antigen - Final Unknown Source 05/02/23 12:55 Bacterial Antigens - Final Urine Kidney A&P Assessment and plan (1) Acute encephalopathy: Unclear cause of acute encephalopathy. Possibly acute metabolic encephalopathy, possibly toxic encephalopathy with medication toxicity or withdrawal. Cannot provide history, history had to be obtained from outside sources. Is noted to have acute kidney injury, on May need unknown medications. Possible medication toxicity versus withdrawal. UDS reviewed, noted positive for benzodiazepines. Additionally meets SIRS criteria with WBC 12.21, sinus tachycardia, bronchitis, possible mild asthma exacerbation, no pneumonia, but possible aspiration antibiotic-loaded. For now empirically covered with Zosyn. Lactic acid reviewed. Reviewed vitals, CBC, INR, PTT, ABG, CMP, troponin, albumin, lipase, TSH noted with abnormality 5.22. Check free T4. History of hypothyroidism. Unknown if on and/dose of levothyroxine. Reviewed ER note, discussed with ER physician. Reviewed rapid influenza, COVID PCR panel. Rehydrated. Check vitamin B12. Noted hypercalcemia of unclear etiology. Total protein not elevated. Check PTH. Vitamin D. One-to-one sitter as she has been climbing out of bed. (2) BARAK (acute kidney injury): Reviewed UA, not suggestive of UTI, no hematuria. Reviewed CT abdomen pelvis, nonobstructing kidney stone noted. Appears dehydrated. Receiving fluid challenge. Obtain urine studies. Follow-up kidney function. (3) SIRS (systemic inflammatory response syndrome): Unclear cause of SIRS. Leukocytosis, sinus tachycardia 120s. No obvious source of sepsis. Does not appear to be vomiting, no diarrhea noted in diaper. Afebrile. Grossly no focal neurologic abnormality. CT of the head unremarkable. Does appear to have bronchitis, viral panel unremarkable. Possible aspiration. For now. Coverage with Zosyn, additionally recent skin infection for which she was being covered with clindamycin, Bactrim, for now provide empiric coverage with daptomycin. Blood cultures have been collected. Follow-up. Monitor for diarrhea with risk of C. difficile. (4) Hypercalcemia: Unclear cause of hypercalcemia. Total protein appears normal. Check PTH, vitamin D. Obtain medication list when possible. Give IV hydration. Reassess calcium. Compression fractures in the spine. Will obtain serum light chains, urine light chains, SPEP, immunofixation. (5) Hypothyroid: TSH reviewed, 08.30. Check free T4. Obtain medication list when available to see if and what dose she takes of levothyroxine. (6) Compression fracture: Incidentally noted compression fractures in the spine. With hypercalcemia. Will obtain serum light chains, urine light chains, SPEP, immunofixation. Follow-up with assessment for osteoporosis. Consider treatment (7) Patient taking unknown medications: This medications if become available through family, otherwise hopefully it may be possibly obtained from records from [facility] tomorrow. They declined to provide any information today when requested from the ER. (8) Bronchitis: Viral PCR panel reviewed. Add scheduled and as needed DuoNebs. Chest x-ray reviewed. No pneumonia. Possible aspiration. Meet SIRS criteria. Cover with Zosyn for now. (9) Cachexia: Appears to have severe malnutrition, height is unknown, BMI not yet available, weight is 36 kg, thin, masseters, severe sarcopenia. For now start IV hydration. Nutritional support when able to tolerate oral intake or may require parenteral nutritional support if that was something consistent with her goals of care. Case management consultation. Plan Splenic granulomas: Incidentally found on CT abdomen pelvis Nephrolithiasis: Incidentally found on CT abdomen pelvis Left hand wound: Empirically continue antibiotic coverage with Zosyn for now. As she had been on clindamycin, Bactrim, seems MRSA coverage was desired, will add dapto for now. Hold off on Zosyn with vancomycin due to kidney dysfunction, risk of further kidney injury, renal failure. Avoid linezolid due to unknown medications, risk of serotonin syndrome. Check CK, monitor for rhabdomyolysis risk with daptomycin. Will need to obtain records from [facility] tomorrow, they would not give us any information today for Asthma: Possible exacerbation, noted some rhonchi, wheezing, bronchitis at least. Possible component of asthma exacerbation. Add scheduled and as needed DuoNebs. Viral PCR reviewed. HTN: Monitor blood pressure. Will add hydralazine as needed until can start some oral medications. Code status: Patient reportedly would not want CPR or intubation in case of cardiopulmonary arrest. Confirm w patient if/when becomes more alert. Plan for the day: Hospital course appreciated. Patient seems more awake today. Speech evaluation advance diet accordingly. Patient does not have any leukocytosis anymore. Hypercalcemia, leukocytosis, severe acute kidney on admission most likely from severe dehydration. Mostly resolving. Switch fluid to D5 NS at 75 cc/h. Repeat BMP in evening. Infectious source less likely. For now hold off on daptomycin and continue with IV Zosyn. Check MRSA swab. If patient remains afebrile without leukocytosis for next 24 to 48 hours we will plan to discontinue IV antibiotics while following blood cultures. Patient continues to have tachycardia and elevated blood pressures. Start on IV metoprolol for 5 mg every 4 hourly. Target blood pressure less than 140/90 mmHg. If needed will start on clonidine patch. For now increase hydralazine to 5 mg every 4 hours as needed. Care discussed in detail with patient's granddaughter Aruna mckeon. [facility] for [facility]habitation from addiction patient is supposed to come next 3 weeks. As per her patient lives by herself and is usually AOx3 and able to take care of all her ADLs by herself but recently moved to live with her daughter as the granddaughter was in the rehab. Granddaughter also provided the number for her PCP Dr. Machuca. Spoke to patient's PCP office. Going to fax over patient's medical history and medications. Will restart medications accordingly. Patient most likely will need SNF placement given severe physical deconditioning. PT evaluation. Attestations 2 Medical Necessity Statement*: Requires further hospitalization for management of altered mental status, severe physical deconditioning while further etiologies and long-term plan is sought Diagnoses Acute encephalopathy G93.40 BARAK (acute kidney injury) N17.9 SIRS (systemic inflammatory response syndrome) R65.10 Hypercalcemia E83.52 Hypothyroid E03.9 Compression fracture Patient taking unknown medications Z79.899 Bronchitis J40 Cachexia R64
[2023-05-02 19:42] LABS: Blood Urea Nitrogen 25 mg/dL (8-23); Calcium 8.9 mg/dL (8.5-10.5); Carbon Dioxide 22 mmol/L (22-29); Chloride 105 mmol/L (98-107); Glucose 121 mg/dL (65-115); Osmolality Calculated 294 mOsm/kg (285-295); Sodium 139 mmol/L (136-145)
--- NOTE | 2023-05-02 19:45 | CTR_ITS ---
PROCEDURE INFORMATION: Exam: CT Head Without Contrast Exam date and time: 05/02/2023 7:57 PM Age: 77 years old Clinical indication: Altered mental status/memory loss and weakness, extremity; Left; Additional info: AMS TECHNIQUE: Imaging protocol: Computed tomography of the head without contrast. Radiation optimization: All CT scans at this facility use at least one of these dose optimization techniques: automated exposure control; mA and/or kV adjustment per patient size (includes targeted exams where dose is matched to clinical indication); or iterative reconstruction. COMPARISON: CT head wo con* [id number] 05/01/2023 6:24 AM RADIATION DOSE METRICS: Total DLP (mGy-cm): 1014.24 FINDINGS: Brain: No acute intracranial hemorrhage, acute large territory infarct, or obvious mass lesion. Age appropriate diffuse cerebral volume loss. Extensive chronic white matter changes, likely to be chronic small vessel ischemic changes. No midline shift or mass effect. Cerebral ventricles: No ventriculomegaly. Paranasal sinuses: Air-fluid levels in the maxillary sinuses and right sphenoid sinus, with mucous in the left maxillary sinus as well. Opacification of some of the ethmoid air cells. Mastoid air cells: Trace bilateral mastoid effusions, nonspecific. Bones/joints: No acute osseous abnormality or evidence of osseous metastatic disease. Soft tissues: Unremarkable. CT/CT head wo con* [id number] IMPRESSION: 1. No acute intracranial abnormality. 2. Consider MRI, which is more sensitive for detecting acute ischemic changes, if clinically indicated.
[2023-05-02 19:48] LABS: Anion Gap 16.2 (5-19); Potassium 4.2 mmol/L (3.5-5.1)
--- NOTE | 2023-05-02 19:57 | XRR_ITS ---
PROCEDURE INFORMATION: Exam: XR Left Elbow Exam date and time: 05/02/2023 8:20 PM Age: 77 years old Clinical indication: Other: Stiffness; Additional info: Stifness TECHNIQUE: Imaging protocol: Radiologic exam of the left elbow. Views: 1 or 2 views. COMPARISON: CR (CHEST, ) 05/02/2023 8:18 PM FINDINGS: Limitations: Suboptimal positioning on both the AP and lateral views. Bones/joints: No acute fracture or dislocation identified. Mild degenerative changes. Soft tissues: Normal. XR/XR elbow LT 2V [id number] IMPRESSION: No acute findings.
--- NOTE | 2023-05-02 19:57 | XRR_ITS ---
PROCEDURE INFORMATION: Exam: XR Left Shoulder Exam date and time: 05/02/2023 8:18 PM Age: 77 years old Clinical indication: Other: Stiffness; Additional info: Stifness TECHNIQUE: Imaging protocol: Radiologic exam of the left shoulder. Views: 2 or more views. COMPARISON: CR (CHEST, ) 05/01/2023 6:21 AM FINDINGS: Bones/joints: No acute fracture or dislocation. Chronic degenerative changes in the left shoulder. Soft tissues: Normal. XR/XR shoulder LT min 2V* [id number] IMPRESSION: No acute findings.
--- NOTE | 2023-05-02 19:57 | XRR_ITS ---
PROCEDURE INFORMATION: Exam: XR Left Hand Exam date and time: 05/02/2023 8:24 PM Age: 77 years old Clinical indication: Other: Stiffness; Additional info: Fall TECHNIQUE: Imaging protocol: Radiologic exam of the left hand. Views: 3 or more views. COMPARISON: CR (UP EXM, ) 05/02/2023 8:20 PM FINDINGS: Limitations: Evaluation of the fingers somewhat limited due to partially flexed position. Bones/joints: No acute fracture or dislocation identified. Soft tissues: Normal. XR/XR hand LT 2V [id number] IMPRESSION: No acute findings.
--- NOTE | 2023-05-02 19:59 | PM.CCNAC ---
Critical Care Event Note The high probability of a clinically significant, sudden or life threatening deterioration of the patient's [] system(s) required my full and direct attention, intervention and personal management. The critical care time is as shown. This time is in addition to time spent performing any reported procedures but includes the following: [x] Data and vital sign review and interpretation [x] Patient assessment, examination and intervention [x] Documentation [x] Medication orders and management Critical Care Time Code activated: Yes Critical Care Time (min): 45 Additional information about critical care time: -At roughly 7 30 p.m. or so I was called by nursing staff as patient was complaining that she could not move her left arm, she was alert to person, to place, not to time, no slurring of words, nurse noticed a possible left facial droop, she is moving her left lower extremity, stroke code was activated, -On examination patient is alert to person, not to place, not to time, she can follow commands -Pupils equal round reactive to light, no neglect -She does have weakness in the left hand, 3 out of 5 compared to 5 out of 5 on the right, but she has a lot of left hand pain she tells me -On examination she is very stiff in the left hand, left elbow left shoulder she does not know why, she tells me it hurts all over on palpation she does any point tenderness but is very stiff during my examination and is very hesitant about moving the left upper extremity, she is able to hold the left upper extremity against gravity -Equal strength bilaterally lower extremity -She is too encephalopathic at times to follow-up coordination exam to test for possible clumsy hand syndrome, she has a wound on her left hand, etiology uncertain possibly associated with skin tears possible fall, she does not really follow commands to test dexterity -I cannot discern any facial droop -No slurring of her words -On my examination her NIH stroke scale is 1 -She has had a stroke before, when asked about that she says yes, when asked her about if she has any chronic weakness, she is not really able to give me a straightforward answer -She had a head CT when she came in she was initially normal -I looked over her prior notes, when she came in she was globally encephalopathic, no focal weakness was documented -This evening she is more alert and awake according to nursing staff the nurse that took over her shift told me that she noticed the left-sided weakness when she was doing around the patient complained of left-sided weakness that she did not have before -Nurses during the daytime I was told and report did not notice any left-sided or left arm or left hand weakness -She has had sinus tachycardia she has had hypertension during her hospitalization -Currently her NIH stroke scale is 1, the timeframe unfortunately is unknown it could be from admission -Spoke to neurology, they were agreeable, that timeframe is unknown unfortunately she is not a good candidate for tPA or any endovascular procedure -Unfortunately she is not a good candidate for tPA or any endovascular procedure -Patient's symptoms seem more like pain and limited range of motion of left and left shoulder, intractable pain limited range of motion due to pain will order x-rays, no other focal weakness, remains encephalopathic at times -Has a history of prior CVA, timeframe unknown, residual weakness unknown -CT head performed, no acute bleed -Will also do a x-ray of the left hand, left elbow left shoulder as she has significant pain, and limited range of motion, and stiffness ule out fracture -For now we will operate on worst case scenario that she has had a CVA -Aspirin, statin, -Monitor blood pressures -She has a cardiac echo performed, carotid artery ultrasound ordered -Will order an MRI for tomorrow morning -Spoke to nursing staff, spoke to neurology, spoke to patient Coding Level of Care Code Critical Care
--- NOTE | 2023-05-02 20:00 | PC.NURSE ---
Stroke Alert Around 192, patient noted to have left sided rigidity in the arm as well as weakness in the left hand and minimal left facial droop. Patient alert to self and able to state that she was at the hospital though unable to state which hospital or town, unable to state month/year, speech clear and appropriate. Lower extremity strength equal bilaterally and pupils noted to be equal, brisk, and reactive. Dr. Elizabeth notified; order received to call a stroke alert and head ct ordered by physician.
--- NOTE | 2023-05-02 20:10 | USCV_ITS ---
Amanda Waldron Age: 77 Gender: F : 1945 Exam Date: 05/02/2023 21:00 Ordering Phys: Richie Elizabeth MD Technologist: JOSEF [place] [facility] [place]: new CVA. left-sided weakness. long-term smoker continues smoking. RIGHT sided neck linear scar - prior endart? Risk Factors: new CVA. left-sided weakness. long-term smoker continues smoking. RIGHT sided neck linear scar - prior endart? Previous Vascular Surgery: probable RIGHT endarterectomy. date unknown. patient unable to answer Right Brachial BP: 135 / 84 Left Brachial BP: / Right Left Velocity (cm/s) Spectral Plaque Velocity (cm/s) Spectral Plaque Syst/Diast Broadening Syst/Diast Broadening 93.60/ 21.80 None Homo Prox CCA 68.40 / 13.10 None Homo 33.80/ 7.30 None Homo Mid CCA 67.30 / 12.10 None Homo 42.30/ 8.10 Min Hetro Distal CCA 56.70 / 14.00 Min Hetro 82.80/ 26.30 Min Homo Prox ICA 110.30/ 28.70 Mod Sea 112.50/30.90 Min Homo Mid ICA 86.20 / 28.00 Mod Sea 101.40/33.10 PST Homo Distal ICA 97.90 / 32.60 Min Hetro 59.20 Mod Hetro ECA 52.80 Mod Sea 1.20 ICA/CCA 1.61 Antegrade Vertebral Antegrade 49.60/ 16.50 cm/s 36.40/ 9.90 cm/s Tri Subclavian Tri 77.20 99.20 CONCLUSIONS Right ICA stenosis <50%. Mild atheromatous plaque right carotid bulb/ICA. Suspected RIGHT CEA Left ICA stenosis <50%. Moderate atheromatous plaque left carotid bulb/ICA. Normal antegrade Doppler flow noted in the right vertebral artery. Normal antegrade Doppler flow noted in the left vertebral artery. Félix Elaine MD (Electronically Signed) Final Date: 03 May 2023 10:03 S
--- NOTE | 2023-05-02 22:30 | PC.NURSE ---
NPO Prior to calling stroke alert, at around 1900, patient stated she wanted a snack. While attempting to consume jello, patient was unable to swallow and patient coughed the jello up back into her mouth. Jello suctioned out. Following stroker alert, orders received for PO medications. Dr. Elizabeth notified of inability to swallow, order received to perform additional bedside swallow eval. Patient once again unable to swallow extremely thick substance. Dr. Elizabeth notified and order received to keep patient NPO. PO medications not administered.
[2023-05-02 23:30] LABS: Glucose Point of Care 155 mg/dL (70-110)
[2023-05-03] VITALS (85 sets, daily range): BP systolic 85–196; BP diastolic 52–98; PULSE 85–139; RESP 13–46; TEMP 36.6–37.1; O2SAT 88–100; BMI 15.7
[2023-05-03] MEDS: hyDRALAzine 20 mg/mL INJ 1 mL 5 MG IVP ×3 (00:07→18:32)
[2023-05-03] MEDS: piperacillin-tazobactam 3.375 GM in sodium chloride 0.9% (plus) 50 ML IV ×2 (00:37→16:31)
[2023-05-03] MEDS: metoprolol tartrate 1 mg/1 mL SDV 5 mL 5 MG IVP ×2 (00:37→06:05)
[2023-05-03] MEDS: aspirin 300 mg Supp PR (00:37)
[2023-05-03] MEDS: ondansetron 2 mg/ML SDV 2 mL 4 MG IVP ×2 (02:25→07:42)
[2023-05-03 04:59] LABS: Basophils % 0.2 %; Eosinophils # 0.1 10^3/uL (0.0-0.8); Eosinophils % 1.2 %; Hematocrit 33.5 % (36-47); Lymphocytes # 0.7 10^3/uL (0.8-4.8); Lymphocytes % 8.1 %; Mean Corpuscular HGB Conc 33.7 g/dL (30-55); Mean Corpuscular Hemoglobin 32.8 pg (27-33); Mean Corpuscular Volume 97.1 fl (85-98); Mean Platelet Volume 9.8 fL (7.4-10.4); Monocytes # 0.9 10^3/uL (0.2-0.9); Neutrophils # 6.78 10^3/uL (1.8-7.7); Neutrophils % 79.9 %; Nucleated Red Blood Cells % 0 %; Platelet Count 149 10^3/cmm (157-399); Red Blood Count 3.45 10^6/uL (3.85-5.65); Red Cell Distribution Width 13.9 % (12.1-15.1); White Blood Count 8.49 10^3/uL (3.29-11.43)
[2023-05-03 05:28] LABS: Alanine Aminotransferase 10 U/L (0-33); Albumin Level 3.5 g/dL (3.5-5.2); Alkaline Phosphatase 71 U/L (35-105); Anion Gap 14.8 (5-19); Aspartate Amino Transferase 21 U/L (0-32); Blood Urea Nitrogen 23 mg/dL (8-23); Calcium 9.1 mg/dL (8.5-10.5); Carbon Dioxide 24 mmol/L (22-29); Chloride 104 mmol/L (98-107); Globulin 3.5 g/dL (1.3-4.6); Glucose 118 mg/dL (65-115); Osmolality Calculated 293 mOsm/kg (285-295); Phosphorus 2.5 mg/dL (2.5-4.5); Potassium 3.8 mmol/L (3.5-5.1); Sodium 139 mmol/L (136-145); Total Bilirubin 0.3 mg/dL (0.15-1.2)
[2023-05-03 05:29] LABS: Chol HDL Ratio 1.68 mg/dL (0.0-4.40); Cholesterol 131 mg/dL (0-200); HDL Cholesterol 78 mg/dL (60-100); LDL Cholesterol Calculated 39 mg/dL (50-129); Magnesium 1.5 mg/dL (1.7-2.3); Triglycerides 71 mg/dL (0-150); VLDL Cholestrol Calculation 14 mg/dL (0-30)
[2023-05-03 05:41] LABS: Estmated Average Glucose 97
[2023-05-03 05:54] LABS: Folate Level 15.6 ng/mL (4.8-37.3)
[2023-05-03 06:04] LABS: PROTEIN, TOTAL 7.4 g/dL (6.1-8.1)
--- NOTE | 2023-05-03 06:53 | PC.NURSE ---
Metoprolol 5 mg metoprolol tartrate IVP due at 0515. Patient's HR in the 110s with a blood pressure of 153/76 at 0600. Due to possible stroke and allowing for permissible hypertension, Dr. Elizabeth contacted for verification of metoprolol administration. Verification received. See MAR for details.
--- NOTE | 2023-05-03 08:00 | MR_ITS ---
WS: [id number] MRI BRAIN WITHOUT CONTRAST HISTORY: left hand weakness COMPARISON: CT head 05/02/2023 TECHNIQUE: Diffusion imaging, multiplanar T1, T2 and FLAIR imaging obtained. No diffusion abnormality or acute infarct. There is extensive T2 and FLAIR signal hyperintensity thro ughout the white matter. There is confluent and patchy signal abnormalities from small vessel ischemi c disease. No signal abnormality in the trell or cerebellum. Remote lacunar infarct in the RIGHT centr um semiovale. No large territory infarct. No hemorrhage. Ventricles and extra-axial spaces are normal. No inferior displacement of cerebellar tonsils. The sella turcica and pituitary gland are unremarkabl e. Dural venous sinuses and [place] demonstrate no abnormality on this unenhanced studies. Paranasal sinuses: Small air-fluid levels in the maxillary sinuses. Mastoid air cells: Normal. Calvarium and scalp: Intact. IMPRESSION: 1. No acute infarct or hemorrhage. 2. Advanced small vessel ischemic changes throughout the white matter. Prior lacunar infarct RIGHT c entrum semiovale. 3. Small air-fluid levels in the maxillary sinuses.
[2023-05-03 12:19] LABS: KAPPA LIGHT CHAIN, FREE, SERUM 56.5 mg/L (3.3-19.4); LAMBDA LIGHT CHAIN, FREE, SERU 37.6 mg/L (5.7-26.3)
--- NOTE | 2023-05-03 12:44 | PC.NUTR ---
Addendum entered by Mario Bell 05/03/23 15:00: with 125 ml FWF q8 Original Note: Pt would benefit from early enteral nutrition support based on presence of SIRS/sepsis. If medically able, begin EN following RD recs below once access obtained: Vital AF 1.2 @ 25 ml/hrs x24hrs then advance to goal of 40 ml/hr x24 hrs
[2023-05-03 14:44] LABS: ALBUMIN 3.7 g/dL (3.8-4.8); ALPHA 1 GLOBULIN 0.4 g/dL (0.2-0.3); BETA 1 GLOBULIN 0.5 g/dL (0.4-0.6); BETA 2 GLOBULIN 0.6 g/dL (0.2-0.5); GAMMA GLOBULIN 1.2 g/dL (0.8-1.7)
[2023-05-03 15:10] LABS: Methicillin-Resist S.aureu PCR NOT DETECTED (NOT DETECTED)
--- NOTE | 2023-05-03 15:36 | P.PN_ITS ---
Subjective 2 Subjective: Overnight acute code stroke was called and because of patient having episode of choking and possibility of left-sided weakness. CT head was done which was negative for acute stroke. Today morning on examination patient started to work with physical therapy. She is awake and alert and able to tell me her name, being in hospital, year. Denies any difficulty in breathing or pain. Blood pressure is better controlled but continues to have tachycardia, on 2 L of oxygen supplementation. Vitals/I&O/Wt Last Vital Signs Temp 97.8 F 05/03/23 09:45 Pulse 122 H 05/03/23 12:15 Resp 21 H 05/03/23 12:15 BP 123/73 05/03/23 12:15 Pulse Ox 92 05/03/23 12:15 O2 Del Method Nasal Cannula 05/03/23 08:00 O2 Flow Rate 2 05/03/23 08:00 05/03/23 05/03/23 05/03/23 06:59 14:59 22:59 Intake Total 50 / 180 Output Total 550 / 1600 Balance -500 / -1420 Weight last 48 hrs Weight 35.471 kg Weight 35.97 kg Physical Exam 2 Narrative: Dehydrated, cachectic Const: COMMON NORMALS: patient oriented x3 and alert GENERAL APPEARANCE: n ot cooperative NUTRITIONAL APPEARANCE: cachectic O RIENTATION/CONSCIOUSNESS: Yes awake, Yes oriented to person and Yes oriented to time HENMT: COMMON NORMALS: oropharynx normal Eye: OTHER: pupils bilaterally equal and reactive Neck/C-Spine: COMMON NORMALS: no JVD Resp: COMMON NORMALS: normal respiratory effort and clear to auscultation bilaterally AUSCULTATION: clear to auscultation bilaterally Cardio: COMMON NORMALS: no JVD, regular rhythm, S1 normal heart sound present, S2 normal heart sound present and No murmurs present (Cardio) RATE: t achycardic RHYTHM: regular rhythm HEART SOUNDS: S1 normal heart sound present and S2 normal heart sound present GI: COMMON NORMALS: Normal to inspection, nondistended, normoactive bowel sounds present, Soft to palpation and non-tender PALPATION: Yes Soft to palpation Extremity: COMMON NORMALS: no joint enlargement and no pedal edema N ARRATIVE EXTREMITY EXAM: L hand dorsal wound w eschar OTHER: Prior injury/scar LLE Neuro: COMMON NORMALS: patient oriented x3 and moves all extremities S ENSORIUM/ORIENTATION: Yes alert, Yes oriented to person and Yes oriented to time Skin: NARRATIVE SKIN EXAM: Thin dry skin. Urinary Catheter Management: James: Cath Placed During This Visit: yes Reason for Continuing Indwelling Catheter: Accurate Measurement of Urinary Output in Critically Ill Patients Urinary Catheter Date of Insertion: 05/01/23 Urinary Catheter Time of Insertion: 17:00 Data 05/03/23 04:42 05/03/23 04:42 Micro: Microbiology 05/02/23 12:55 Legionella Urinary Antigen - Final Unknown Source 05/02/23 12:55 Bacterial Antigens - Final Urine Kidney A&P Assessment and plan (1) Acute encephalopathy: Most likely in setting of acute dehydration leading to acute kidney injury and hypernatremia on admission. Unaware of patient's baseline but currently patient AO x 2-3. Appreciate vitamin B12, TSH levels, free T3-4 levels. MRI head shows prior lacunar infarct with chronic microvascular ischemic changes. Resolving currently. Continue with IV hydration. (2) BARAK (acute kidney injury): Most likely in setting of dehydration. Resolved. Creatinine down to 0.8. Medical reconciliation done for nephrotoxic drugs. Monitor BMP daily. Strict input output charting. (3) Hypercalcemia: Most likely in setting of dehydration. Resolved. Appreciate PTH results. (4) Hypothyroid: TSH mildly elevated at 5 on admission. Free T4 normal. Restart oral levothyroxine when possible. If patient is not able to start on oral medications today we will start on IV levothyroxine half the dose of home dose tomorrow. (5) Compression fracture: Incidentally noted compression fractures in the spine. As per PCP patient has history of compression fractures in the past. Physical therapy. Pain control. (6) Patient taking unknown medications: Appreciate medication list from patient's PCP. Med rec completed. Will start oral medications when possible. (7) Bronchitis: Viral PCR panel reviewed. Add scheduled and as needed DuoNebs. Chest x-ray reviewed. No pneumonia. Possible aspiration. Meet SIRS criteria. Cover with Zosyn for now. 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 Dietary consultation once patient is able to intake orally. Monitor for refeeding syndrome once patient is back on diet. Replace magnesium for now. (9) SIRS (systemic inflammatory response syndrome): Present on admission. Unclear cause of SIRS. Leukocytosis, sinus tachycardia 120s. No obvious source of sepsis. Does not appear to be vomiting, no diarrhea noted in diaper. Afebrile. Grossly no focal neurologic abnormality. CT of the head unremarkable. Does appear to have bronchitis, viral panel unremarkable. Possible aspiration. Plan Splenic granulomas: Incidentally found on CT abdomen pelvis Nephrolithiasis: Incidentally found on CT abdomen pelvis Left hand wound: Empirically continue antibiotic coverage with Zosyn for now. As she had been on clindamycin, Bactrim, seems MRSA coverage was desired, will add dapto for now. Hold off on Zosyn with vancomycin due to kidney dysfunction, risk of further kidney injury, renal failure. Avoid linezolid due to unknown medications, risk of serotonin syndrome. Check CK, monitor for rhabdomyolysis risk with daptomycin. Will need to obtain records from [facility] tomorrow, they would not give us any information today for Asthma: Possible exacerbation, noted some rhonchi, wheezing, bronchitis at least. Possible component of asthma exacerbation. Add scheduled and as needed DuoNebs. Viral PCR reviewed. HTN: Monitor blood pressure. Will add hydralazine as needed until can start some oral medications. Code status: Discussed in detail with patient's granddaughter Ms. Aruna no over the phone. For now full code. Plan for the day: Follow-up PT/OT and speech evaluation. Restart diet as per speech therapy. Appreciate MRI results for no acute stroke. Out of bed to chair. Continue with IV Zosyn for now. If patient remains hemodynamically stable and afebrile for next 24 hours we will discontinue IV antibiotics. If patient is able to tolerate oral medication will restart chronic psych medications. Restart levothyroxine in the next 24 hours IV versus oral as per the speech therapy. Goal blood pressure less than 140/90 mmHg. Patient continues to have tachycardia. Takes metoprolol 50 mg twice daily at home. For now continue with metoprolol 7.5 mg every 4 hours. Will add IV versus clonidine patch antihypertensive depending on goal blood pressures and patient's oral intake status. Continue with D5 NS at 50 cc/h for now. Medical reconciliation done. Will restart oral medications. Continue with ICU care for now. Discharge plan: Patient seems severely deconditioned and cachectic. Will await PT evaluation. Most likely patient will need transition over to SNF for further rehabilitation before she can transition to home. Will discuss further with patient and family once available. Case management alerted. Attestations 2 Medical Necessity Statement*: Requires further hospitalization for management of altered mental status in setting of dehydration and BARAK from poor oral intake, cachexia and severe physical deconditioning while safe discharge planning is sought. Diagnoses Acute encephalopathy G93.40 BARAK (acute kidney injury) N17.9 Hypercalcemia E83.52 Hypothyroid E03.9 Compression fracture Patient taking unknown medications Z79.899 Bronchitis J40 Cachexia R64 SIRS (systemic inflammatory response syndrome) R65.10
[2023-05-03] MEDS: metoprolol tartrate 1 mg/1 mL SDV 5 mL 7.5 MG IVP (16:31)
[2023-05-03] MEDS: pantoprazole 40 mg SDV IVP (16:32)
[2023-05-03] MEDS: dextrose 5%-sod chloride 0.9% 1,000 ML 50 ML IV (16:32)
[2023-05-03] MEDS: baclofen 10 mg Tablet 5 MG PO (18:07)
[2023-05-03] MEDS: atorvastatin 40 mg Tablet PO (20:36)
--- NOTE | 2023-05-03 20:51 | PC.NURSE ---
2051: Metoprolol 7.5 mg was held due to blood pressure being 87/56
[2023-05-04] VITALS (49 sets, daily range): BP systolic 78–159; BP diastolic 50–82; PULSE 100–128; RESP 16–29; TEMP 36.6–36.7; O2SAT 93–100; BMI 15.7
[2023-05-04] MEDS: piperacillin-tazobactam 3.375 GM in sodium chloride 0.9% (plus) 50 ML IV ×2 (02:34→14:26)
[2023-05-04 04:48] LABS: Basophils % 0.2 %; Eosinophils # 0.2 10^3/uL (0.0-0.8); Eosinophils % 1.7 %; Hematocrit 31.2 % (36-47); Lymphocytes # 0.7 10^3/uL (0.8-4.8); Lymphocytes % 7.4 %; Mean Corpuscular HGB Conc 32.1 g/dL (30-55); Mean Corpuscular Hemoglobin 31.5 pg (27-33); Mean Corpuscular Volume 98.4 fl (85-98); Monocytes % 9.8 %; Neutrophils # 8.04 10^3/uL (1.8-7.7); Neutrophils % 79.9 %; Nucleated Red Blood Cells % 0 %; Platelet Count 136 10^3/cmm (157-399); Red Blood Count 3.17 10^6/uL (3.85-5.65); Red Cell Distribution Width 13.8 % (12.1-15.1); White Blood Count 10.06 10^3/uL (3.29-11.43)
[2023-05-04 05:10] LABS: Alanine Aminotransferase 8 U/L (0-33); Alkaline Phosphatase 62 U/L (35-105); Anion Gap 12.7 (5-19); Aspartate Amino Transferase 16 U/L (0-32); Blood Urea Nitrogen 23 mg/dL (8-23); Carbon Dioxide 23 mmol/L (22-29); Chloride 104 mmol/L (98-107); Globulin 3.4 g/dL (1.3-4.6); Glucose 112 mg/dL (65-115); Osmolality Calculated 286 mOsm/kg (285-295); Phosphorus 2.3 mg/dL (2.5-4.5); Potassium 3.7 mmol/L (3.5-5.1); Sodium 136 mmol/L (136-145); Total Bilirubin 0.3 mg/dL (0.15-1.2); Total Protein 6.4 g/dL (6.6-8.7)
[2023-05-04 05:12] LABS: Magnesium 1.2 mg/dL (1.7-2.3)
--- NOTE | 2023-05-04 09:00 | PC.NURSE ---
Pt's SBP ranging from 80-90's. Dr Farris held Metoprolol dose currently due and added parameters to hold if SBP less than 100.
[2023-05-04] MEDS: dextrose 5%-sod chloride 0.9% 1,000 ML 50 ML IV (09:13)
[2023-05-04] MEDS: baclofen 10 mg Tablet 5 MG PO (09:14)
[2023-05-04] MEDS: aspirin 300 mg Supp PR (09:15)
--- NOTE | 2023-05-04 10:20 | PC.NURSE ---
[facility] called for information regarding pt's diagnosis and status.
--- NOTE | 2023-05-04 10:30 | PC.NURSE ---
Dr Farris notified of pt's fluctuating SBP.
[2023-05-04] MEDS: magnesium sulfate premix 2 GM/50 ML PIGGYBACK IV (11:40)
--- NOTE | 2023-05-04 11:55 | PC.SOCIAL ---
Pg 2 IMM Updated pt & daughter, Aruna on Pg 2 IMM. No questions voiced. Provided pt a copy. Initialed, dated, & timed a copy & placed in chart.
[2023-05-04] MEDS: pantoprazole 40 mg SDV IVP (14:26)
--- NOTE | 2023-05-04 14:30 | P.PN_ITS ---
Subjective 2 Subjective: No acute events overnight. Patient has remained hemodynamically stable and afebrile. Today morning on examination she is a lot more awake and alert. Able to have complete conversation. AAOx3. ?? Has been having occasional episodes of soft blood pressures today morning with systolic blood pressures followed down to 90 systolics. Appropriate urine output. Vitals/I&O/Wt Last Vital Signs Temp 98.2 F 05/03/23 13:00 Pulse 120 H 05/04/23 13:00 Resp 22 H 05/04/23 13:00 BP 120/55 05/04/23 13:00 Pulse Ox 96 05/04/23 12:30 O2 Del Method Nasal Cannula 05/04/23 08:17 O2 Flow Rate 2 05/04/23 08:17 05/03/23 05/04/23 05/04/23 22:59 06:59 14:59 Intake Total 260 / 1250 50 / 1300 864.167 / 864.167 Output Total 500 / 500 150 / 650 Balance -240 / 750 -100 / 650 864.167 / 864.167 Weight last 48 hrs Weight 35.38 kg Weight 35.471 kg Physical Exam 2 Narrative: Less dehydrated, cachectic Const: COMMON NORMALS: patient oriented x3 and alert GENERAL APPEARANCE: n ot cooperative NUTRITIONAL APPEARANCE: cachectic O RIENTATION/CONSCIOUSNESS: Yes awake, Yes oriented to person, Yes oriented to time and Yes confused HENMT: COMMON NORMALS: oropharynx normal Eye: OTHER: pupils bilaterally equal and reactive Neck/C-Spine: COMMON NORMALS: no JVD Resp: COMMON NORMALS: normal respiratory effort and clear to auscultation bilaterally AUSCULTATION: clear to auscultation bilaterally Cardio: COMMON NORMALS: no JVD, regular rhythm, S1 normal heart sound present, S2 normal heart sound present and No murmurs present (Cardio) RATE: t achycardic RHYTHM: regular rhythm HEART SOUNDS: S1 normal heart sound present and S2 normal heart sound present GI: COMMON NORMALS: Normal to inspection, nondistended, normoactive bowel sounds present, Soft to palpation and non-tender PALPATION: Yes Soft to palpation Extremity: COMMON NORMALS: no joint enlargement and no pedal edema N ARRATIVE EXTREMITY EXAM: L hand dorsal wound w eschar OTHER: Prior injury/scar LLE Neuro: COMMON NORMALS: patient oriented x3 and moves all extremities S ENSORIUM/ORIENTATION: Yes alert, Yes oriented to person and Yes oriented to time Skin: NARRATIVE SKIN EXAM: Thin dry skin. Urinary Catheter Management: James: Cath Placed During This Visit: yes Reason for Continuing Indwelling Catheter: Accurate Measurement of Urinary Output in Critically Ill Patients Urinary Catheter Date of Insertion: 05/01/23 Urinary Catheter Time of Insertion: 17:00 Data 05/04/23 04:35 05/04/23 04:35 Micro: Microbiology 05/03/23 22:20 Gram Stain - Final Sputum - Expectorated Sputum A&P Assessment and plan (1) Acute encephalopathy: Most likely in setting of acute dehydration leading to acute kidney injury and hypernatremia on admission. Unaware of patient's baseline but currently patient AO x 2-3. Appreciate vitamin B12, TSH levels, free T3-4 levels. MRI head shows prior lacunar infarct with chronic microvascular ischemic changes. Resolving currently. Continue with IV hydration. (2) BARAK (acute kidney injury): Most likely in setting of dehydration. Resolved. Creatinine down to 0.8. Medical reconciliation done for nephrotoxic drugs. Monitor BMP daily. Strict input output charting. (3) Hypercalcemia: Most likely in setting of dehydration. Resolved. Appreciate PTH results. (4) Hypothyroid: TSH mildly elevated at 5 on admission. Free T4 normal. Restart oral levothyroxine when possible. If patient is not able to start on oral medications today we will start on IV levothyroxine half the dose of home dose tomorrow. (5) Compression fracture: Incidentally noted compression fractures in the spine. As per PCP patient has history of compression fractures in the past. Physical therapy. Pain control. (6) Patient taking unknown medications: Appreciate medication list from patient's PCP. Med rec completed. Will start oral medications when possible. (7) Bronchitis: Viral PCR panel reviewed. Add scheduled and as needed DuoNebs. Chest x-ray reviewed. No pneumonia. Possible aspiration. Meet SIRS criteria. Cover with Zosyn for now. 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 Dietary consultation once patient is able to intake orally. Monitor for refeeding syndrome once patient is back on diet. Replace magnesium for now. (9) SIRS (systemic inflammatory response syndrome): Present on admission. Unclear cause of SIRS. Leukocytosis, sinus tachycardia 120s. No obvious source of sepsis. Does not appear to be vomiting, no diarrhea noted in diaper. Afebrile. Grossly no focal neurologic abnormality. CT of the head unremarkable. Does appear to have bronchitis, viral panel unremarkable. Possible aspiration. Plan Splenic granulomas: Incidentally found on CT abdomen pelvis Nephrolithiasis: Incidentally found on CT abdomen pelvis Left hand wound: Appreciated various x-ray without any acute abnormalities. Continue with Zosyn as above which should also take care of mild cellulitis. Asthma: Possible exacerbation, noted some rhonchi, wheezing, bronchitis at least. Possible component of asthma exacerbation. Add scheduled and as needed DuoNebs. Viral PCR reviewed. HTN: Monitor blood pressure. Will add hydralazine as needed until can start some oral medications. Code status: Discussed in detail with patient's granddaughter Ms. Aruna no over the phone. For now full code. Plan for the day: Out of bed to chair. Follow-up PT/OT and speech evaluation. Continue with dysphagia level 4 diet as per speech evaluation. Continue Zosyn to finish a 5-day course. Follow-up blood cultures, sputum cultures have remained negative. As patient is able to tolerate diet more consistently we will start her on her home dose of medications including, levothyroxine, mirtazapine. Blood pressures occasionally soft. Consistently tachycardic most likely in setting of withdrawal from her baseline anxiety medications. Restart metoprolol at a lower dose of 25 mg twice daily. Change IV to as needed for heart rate of more than 110 bpm. Hold metoprolol for systolic blood pressure less than 100 mmHg. Continue with IV fluids with D5 NS at 50 cc/h for now. Strict input charting. Monitor BMP daily for now. BARAK and hypernatremia has resolved. Patient has severe malnutrition with cachexia. Appreciate lipid panel. Change Lipitor to 10 mg daily. Discharge plan: Patient seems severely deconditioned and cachectic. Will await PT evaluation. Most likely patient will need transition over to SNF for further rehabilitation before she can transition to home. Will discuss further with patient and family once available. Case management alerted. Attestations 2 Medical Necessity Statement*: Requires further hospitalization for management of resolving encephalopathy and BARAK in setting of severe dehydration, severe physical deconditioning requiring safe discharge plan Diagnoses Acute encephalopathy G93.40 BARAK (acute kidney injury) N17.9 Hypercalcemia E83.52 Hypothyroid E03.9 Compression fracture Patient taking unknown medications Z79.899 Bronchitis J40 Cachexia R64 SIRS (systemic inflammatory response syndrome) R65.10
[2023-05-04] MEDS: cilostazol 100 mg Tablet PO (17:52)
[2023-05-04] MEDS: metoprolol tartrate 25 mg Tablet PO (20:43)
[2023-05-04] MEDS: atorvastatin 40 mg Tablet 20 MG PO (20:43)
[2023-05-04] MEDS: mirtazapine 30 mg Tablet PO (20:44)
[2023-05-04] MEDS: mirtazapine 15 mg Tablet PO (20:52)
[2023-05-05] VITALS (49 sets, daily range): BP systolic 91–196; BP diastolic 51–98; PULSE 97–127; RESP 15–30; TEMP 36.6–37.9; O2SAT 91–99; BMI 18.0
[2023-05-05] MEDS: piperacillin-tazobactam 3.375 GM in sodium chloride 0.9% (plus) 50 ML IV ×2 (01:36→12:54)
[2023-05-05] MEDS: metoprolol tartrate 1 mg/1 mL SDV 5 mL 5 MG IVP (01:37)
[2023-05-05 04:56] LABS: Basophils % 0.3 %; Eosinophils # 0.3 10^3/uL (0.0-0.8); Eosinophils % 3.3 %; Lymphocytes % 10.5 %; Mean Corpuscular HGB Conc 32.1 g/dL (30-55); Mean Corpuscular Hemoglobin 31.4 pg (27-33); Mean Corpuscular Volume 97.6 fl (85-98); Mean Platelet Volume 10.4 fL (7.4-10.4); Monocytes # 1.1 10^3/uL (0.2-0.9); Monocytes % 11.5 %; Neutrophils # 6.96 10^3/uL (1.8-7.7); Neutrophils % 73.9 %; Nucleated Red Blood Cells % 0 %; Platelet Count 138 10^3/cmm (157-399); Red Blood Count 2.87 10^6/uL (3.85-5.65); Red Cell Distribution Width 13.6 % (12.1-15.1); White Blood Count 9.42 10^3/uL (3.29-11.43)
[2023-05-05 05:22] LABS: Magnesium 1.2 mg/dL (1.7-2.3)
[2023-05-05 05:26] LABS: Alanine Aminotransferase 8 U/L (0-33); Albumin Level 2.8 g/dL (3.5-5.2); Alkaline Phosphatase 75 U/L (35-105); Anion Gap 14.5 (5-19); Aspartate Amino Transferase 13 U/L (0-32); Blood Urea Nitrogen 19 mg/dL (8-23); Calcium 9.1 mg/dL (8.5-10.5); Carbon Dioxide 22 mmol/L (22-29); Chloride 109 mmol/L (98-107); Creatinine Clr Calc Pharmacy 33.9365; Globulin 3.2 g/dL (1.3-4.6); Glucose 103 mg/dL (65-115); Osmolality Calculated 297 mOsm/kg (285-295); Potassium 3.5 mmol/L (3.5-5.1); Sodium 142 mmol/L (136-145); Total Bilirubin 0.3 mg/dL (0.15-1.2)
[2023-05-05] MEDS: ARIPiprazole 30 mg Tablet 15 MG PO (08:42)
[2023-05-05] MEDS: primidone 50 mg Tablet PO (08:42)
[2023-05-05] MEDS: cilostazol 100 mg Tablet PO ×2 (08:43→17:08)
[2023-05-05] MEDS: levothyroxine 112 mcg Tablet PO (08:43)
[2023-05-05] MEDS: aspirin 81 mg EC Tablet PO (08:43)
[2023-05-05] MEDS: metoprolol tartrate 25 mg Tablet PO ×2 (08:49→21:03)
[2023-05-05] MEDS: phosphorus 250 mg Tablet PO ×2 (08:50→17:08)
[2023-05-05] MEDS: magnesium oxide 400 mg tablet PO ×2 (08:50→17:08)
[2023-05-05] MEDS: magnesium sulfate premix 2 GM/50 ML PIGGYBACK IV (08:51)
--- NOTE | 2023-05-05 09:38 | PC.NURSE ---
fed pt am breakfast. up in bed alert and oriented at this time.
[2023-05-05 09:41] LABS: Basophils % 0.3 %; Eosinophils # 0.2 10^3/uL (0.0-0.8); Eosinophils % 2.5 %; Hematocrit 27.4 % (36-47); Lymphocytes # 0.7 10^3/uL (0.8-4.8); Lymphocytes % 9.3 %; Mean Corpuscular HGB Conc 32.5 g/dL (30-55); Mean Corpuscular Hemoglobin 31.7 pg (27-33); Mean Corpuscular Volume 97.5 fl (85-98); Mean Platelet Volume 10.7 fL (7.4-10.4); Monocytes # 0.8 10^3/uL (0.2-0.9); Monocytes % 10.3 %; Neutrophils # 5.61 10^3/uL (1.8-7.7); Neutrophils % 76.8 %; Nucleated Red Blood Cells % 0 %; Platelet Count 130 10^3/cmm (157-399); Red Blood Count 2.81 10^6/uL (3.85-5.65); Red Cell Distribution Width 13.7 % (12.1-15.1)
[2023-05-05] MEDS: dextrose 5%-sod chloride 0.9% 1,000 ML 50 ML IV (09:57)
[2023-05-05] MEDS: iron sucrose 200 MG in sodium chloride 0.9% (100 ml) 100 ML 220 MG IV (09:58)
[2023-05-05 09:59] LABS: Alanine Aminotransferase 9 U/L (0-33); Albumin Level 2.8 g/dL (3.5-5.2); Alkaline Phosphatase 74 U/L (35-105); Anion Gap 14.2 (5-19); Aspartate Amino Transferase 16 U/L (0-32); Blood Urea Nitrogen 17 mg/dL (8-23); Calcium 9.1 mg/dL (8.5-10.5); Carbon Dioxide 22 mmol/L (22-29); Chloride 107 mmol/L (98-107); Globulin 3.1 g/dL (1.3-4.6); Glucose 159 mg/dL (65-115); Osmolality Calculated 295 mOsm/kg (285-295); Phosphorus 2.2 mg/dL (2.5-4.5); Potassium 3.2 mmol/L (3.5-5.1); Sodium 140 mmol/L (136-145); Total Bilirubin 0.3 mg/dL (0.15-1.2); Total Protein 5.9 g/dL (6.6-8.7)
[2023-05-05 11:39] LABS: Vit D 1,25 (Oh)2, Total 23 pg/mL (18-72); Vit D2 1,25 (Oh)2 23 pg/mL; Vit D3 1,25 (Oh)2 <8 pg/mL
[2023-05-05 11:49] LABS: Kappa Free Light Chains Urine 98.23 mg/L (<=32.90)
[2023-05-05] MEDS: potassium chloride ER 20 mEq Tablet 40 MEQ PO (12:01)
--- NOTE | 2023-05-05 12:21 | P.PN_ITS ---
Subjective 2 Subjective: No acute events overnight. Patient is more awake and alert today. Has remained hemodynamically stable and afebrile. Heart rate better controlled today. Sitting up in chair today with physical therapy. Saturating well on 2 L. Patient continues to remain dependent for feeding but appetite improving. Vitals/I&O/Wt Last Vital Signs Temp 98.4 F 05/05/23 10:00 Pulse 102 H 05/05/23 12:00 Resp 18 05/05/23 12:00 BP 128/69 05/05/23 12:00 Pulse Ox 97 05/05/23 12:00 O2 Del Method Nasal Cannula 05/05/23 08:42 O2 Flow Rate 2 05/05/23 08:42 05/04/23 05/05/23 05/05/23 22:59 06:59 14:59 Intake Total 50 / 051.322 7605 / 1914.167 860 / 860 Output Total 150 / 150 250 / 400 Balance -100 / 764.167 750 / 1514.167 860 / 860 Weight last 48 hrs Weight 40.426 kg Weight 35.38 kg Physical Exam 2 Narrative: Less dehydrated, cachectic Const: COMMON NORMALS: patient oriented x3 and alert GENERAL APPEARANCE: n ot cooperative NUTRITIONAL APPEARANCE: cachectic O RIENTATION/CONSCIOUSNESS: Yes awake, Yes oriented to person, Yes oriented to time and Yes confused HENMT: COMMON NORMALS: oropharynx normal Eye: OTHER: pupils bilaterally equal and reactive Neck/C-Spine: COMMON NORMALS: no JVD Resp: COMMON NORMALS: normal respiratory effort and clear to auscultation bilaterally AUSCULTATION: clear to auscultation bilaterally Cardio: COMMON NORMALS: no JVD, regular rhythm, S1 normal heart sound present, S2 normal heart sound present and No murmurs present (Cardio) RATE: t achycardic RHYTHM: regular rhythm HEART SOUNDS: S1 normal heart sound present and S2 normal heart sound present GI: COMMON NORMALS: Normal to inspection, nondistended, normoactive bowel sounds present, Soft to palpation and non-tender PALPATION: Yes Soft to palpation Extremity: COMMON NORMALS: no joint enlargement and no pedal edema N ARRATIVE EXTREMITY EXAM: L hand dorsal wound w eschar OTHER: Prior injury/scar LLE Neuro: COMMON NORMALS: patient oriented x3 and moves all extremities S ENSORIUM/ORIENTATION: Yes alert, Yes oriented to person and Yes oriented to time Skin: NARRATIVE SKIN EXAM: Thin dry skin. Urinary Catheter Management: James: Cath Placed During This Visit: yes Reason for Continuing Indwelling Catheter: Accurate Measurement of Urinary Output in Critically Ill Patients Urinary Catheter Date of Insertion: 05/01/23 Urinary Catheter Time of Insertion: 17:00 Data 05/05/23 09:08 05/05/23 09:08 Micro: Microbiology 05/03/23 22:20 Gram Stain - Final Sputum - Expectorated Sputum Sputum Culture - Preliminary 05/01/23 08:16 Blood Culture - Preliminary Blood 05/01/23 08:13 Blood Culture - Preliminary Blood A&P Assessment and plan (1) Acute encephalopathy: Most likely in setting of acute dehydration leading to acute kidney injury and hypernatremia on admission. Unaware of patient's baseline but currently patient AO x 2-3. Appreciate vitamin B12, TSH levels, free T3-4 levels. MRI head shows prior lacunar infarct with chronic microvascular ischemic changes. Resolving currently. Continue with IV hydration. (2) BARAK (acute kidney injury): Most likely in setting of dehydration. Resolved. Creatinine down to 0.8. Medical reconciliation done for nephrotoxic drugs. Monitor BMP daily. Strict input output charting. (3) Hypercalcemia: Most likely in setting of dehydration. Resolved. Appreciate PTH results. (4) Hypothyroid: TSH mildly elevated at 5 on admission. Free T4 normal. Restart oral levothyroxine when possible. If patient is not able to start on oral medications today we will start on IV levothyroxine half the dose of home dose tomorrow. (5) Compression fracture: Incidentally noted compression fractures in the spine. As per PCP patient has history of compression fractures in the past. Physical therapy. Pain control. (6) Patient taking unknown medications: Appreciate medication list from patient's PCP. Med rec completed. Will start oral medications when possible. (7) Bronchitis: Viral PCR panel reviewed. Add scheduled and as needed DuoNebs. Chest x-ray reviewed. No pneumonia. Possible aspiration. Meet SIRS criteria. Cover with Zosyn for now. 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 Dietary consultation once patient is able to intake orally. Monitor for refeeding syndrome once patient is back on diet. Replace magnesium for now. (9) SIRS (systemic inflammatory response syndrome): Present on admission. Unclear cause of SIRS. Leukocytosis, sinus tachycardia 120s. No obvious source of sepsis. Does not appear to be vomiting, no diarrhea noted in diaper. Afebrile. Grossly no focal neurologic abnormality. CT of the head unremarkable. Does appear to have bronchitis, viral panel unremarkable. Possible aspiration. Plan Splenic granulomas: Incidentally found on CT abdomen pelvis Nephrolithiasis: Incidentally found on CT abdomen pelvis Left hand wound: Appreciated various x-ray without any acute abnormalities. Continue with Zosyn as above which should also take care of mild cellulitis. Asthma: Possible exacerbation, noted some rhonchi, wheezing, bronchitis at least. Possible component of asthma exacerbation. Add scheduled and as needed DuoNebs. Viral PCR reviewed. HTN: Monitor blood pressure. Will add hydralazine as needed until can start some oral medications. Code status: Discussed in detail with patient's granddaughter Ms. Aruna no over the phone. For now full code. Plan for the day: Out of bed to chair. Advance diet as per speech evaluation. Added supplements for nutrition. BARAK and hypernatremia resolved. Continue with IV fluids for now. Restart home medications today including aripiprazole, cilostazol, levothyroxine, metoprolol at 25 mg twice daily, Remeron, primidone. Continue with physical therapy. Patient is at high risk of refeeding syndrome. Replace IV magnesium 2 g stat followed by 400 mg twice daily, start on phosphorus 250 twice daily. Electrolytes appreciated. Replete potassium. Discharge plan: Patient has been accepted at SNF. If continues to do well for next 24 hours and able to tolerate oral diet after restarting home medications will plan to discharge to SNF tomorrow. Attestations 2 Medical Necessity Statement*: Requires further hospitalization while safe discharge planning is sought in a patient with cachexia, severe malnutrition while mental status improves, Various electrolyte abnormalities Diagnoses Acute encephalopathy G93.40 BARAK (acute kidney injury) N17.9 Hypercalcemia E83.52 Hypothyroid E03.9 Compression fracture Patient taking unknown medications Z79.899 Bronchitis J40 Cachexia R64 SIRS (systemic inflammatory response syndrome) R65.10
[2023-05-05] MEDS: pantoprazole 40 mg SDV IVP (12:54)
[2023-05-05] MEDS: atorvastatin 40 mg Tablet 20 MG PO (21:02)
[2023-05-05] MEDS: mirtazapine 15 mg Tablet PO (21:03)
[2023-05-05] MEDS: sodium chloride 0.9% 500 ML 999 ML IV (21:33)
[2023-05-05 21:37] LABS: Basophils % 0.4 %; Eosinophils # 0.3 10^3/uL (0.0-0.8); Eosinophils % 4.4 %; Hematocrit 25.6 % (36-47); Lymphocytes % 13.8 %; Mean Corpuscular HGB Conc 33.2 g/dL (30-55); Mean Corpuscular Volume 96.2 fl (85-98); Mean Platelet Volume 10.3 fL (7.4-10.4); Neutrophils # 5.07 10^3/uL (1.8-7.7); Neutrophils % 67.6 %; Nucleated Red Blood Cells % 0 %; Platelet Count 123 10^3/cmm (157-399); Red Blood Count 2.66 10^6/uL (3.85-5.65); Red Cell Distribution Width 13.4 % (12.1-15.1); White Blood Count 7.51 10^3/uL (3.29-11.43)
[2023-05-06] VITALS (29 sets, daily range): BP systolic 103–191; BP diastolic 51–89; PULSE 91–120; RESP 4–26; TEMP 36.6–37.2; O2SAT 87–96; BMI 18.0
[2023-05-06] MEDS: metoprolol tartrate 1 mg/1 mL SDV 5 mL 5 MG IVP (02:46)
[2023-05-06] MEDS: piperacillin-tazobactam 3.375 GM in sodium chloride 0.9% (plus) 50 ML IV (02:46)
[2023-05-06 05:14] LABS: Basophils % 0.3 %; Eosinophils # 0.4 10^3/uL (0.0-0.8); Eosinophils % 5.6 %; Hematocrit 25.2 % (36-47); Lymphocytes # 0.8 10^3/uL (0.8-4.8); Lymphocytes % 12.6 %; Mean Corpuscular HGB Conc 32.9 g/dL (30-55); Mean Corpuscular Hemoglobin 31.7 pg (27-33); Mean Corpuscular Volume 96.2 fl (85-98); Mean Platelet Volume 10.7 fL (7.4-10.4); Monocytes # 0.8 10^3/uL (0.2-0.9); Monocytes % 12.9 %; Neutrophils # 4.25 10^3/uL (1.8-7.7); Nucleated Red Blood Cells % 0 %; Platelet Count 123 10^3/cmm (157-399); Red Blood Count 2.62 10^6/uL (3.85-5.65); Red Cell Distribution Width 13.5 % (12.1-15.1); White Blood Count 6.26 10^3/uL (3.29-11.43)
[2023-05-06 05:33] LABS: Alanine Aminotransferase 9 U/L (0-33); Albumin Level 2.6 g/dL (3.5-5.2); Alkaline Phosphatase 49 U/L (35-105); Anion Gap 14.3 (5-19); Aspartate Amino Transferase 16 U/L (0-32); Blood Urea Nitrogen 12 mg/dL (8-23); Calcium 8.5 mg/dL (8.5-10.5); Carbon Dioxide 22 mmol/L (22-29); Chloride 107 mmol/L (98-107); Globulin 2.9 g/dL (1.3-4.6); Glucose 98 mg/dL (65-115); Osmolality Calculated 290 mOsm/kg (285-295); Phosphorus 2.8 mg/dL (2.5-4.5); Potassium 3.3 mmol/L (3.5-5.1); Sodium 140 mmol/L (136-145); Total Bilirubin 0.3 mg/dL (0.15-1.2); Total Protein 5.5 g/dL (6.6-8.7)
[2023-05-06 05:43] LABS: Magnesium 1.3 mg/dL (1.7-2.3)
[2023-05-06] MEDS: dextrose 5%-sod chloride 0.9% 1,000 ML 50 ML IV (06:37)
[2023-05-06] MEDS: magnesium oxide 400 mg tablet PO (08:23)
[2023-05-06] MEDS: primidone 50 mg Tablet PO (08:23)
[2023-05-06] MEDS: phosphorus 250 mg Tablet PO (08:24)
[2023-05-06] MEDS: levothyroxine 112 mcg Tablet PO (08:24)
[2023-05-06] MEDS: ARIPiprazole 30 mg Tablet 15 MG PO (08:24)
[2023-05-06] MEDS: metoprolol tartrate 25 mg Tablet PO (08:24)
[2023-05-06] MEDS: cilostazol 100 mg Tablet PO (08:24)
[2023-05-06] MEDS: aspirin 81 mg EC Tablet PO (08:24)
[2023-05-06] MEDS: iron sucrose 200 MG in sodium chloride 0.9% (100 ml) 100 ML 220 MG IV (09:41)
--- NOTE | 2023-05-06 10:30 | PM.DCS ---
Discharge Providers Date of Admission: 05/01/23 13:11 Date of Discharge: May 06, 2023 Attending Provider at Admission: Presley Pacheco Attending Provider at Discharge: Amilcar Farris MD Diagnoses at Discharge Discharge Diagnosis (1) Acute encephalopathy: Status: Acute (2) BARAK (acute kidney injury): Status: Acute (3) Hypercalcemia: Status: Acute (4) Hypothyroid: Status: Acute (5) Compression fracture: Status: Acute (6) Patient taking unknown medications: Status: Acute (7) Bronchitis: Status: Acute (8) Cachexia: Status: Acute (9) SIRS (systemic inflammatory response syndrome): Status: Acute Reason for Visit Reason for Visit: AMS Brief History: History as per HPI: Brought in by EMS emaciated and confused. Cannot provide history or Review of systems. Screams out intermittently. Reportedly was up and about and interacting with grandkids 2 days ago per her daughter but does not live here, was visiting, previously living with her granddaughter in [facility]. Has a number of medications but the list is unknown, daughter does not know them, patient only brought a few with her. Granddaughter with whom she was living is currently in substance use rehabilitation. Last hospital stay [facility] which was contacted by ER provider, but would not give us any information until Tuesday. Patient was recently on antibiotics thought by her daughter related to wound on her hand. Neomycin, then Bactrim. Patient is . Daughter is her only biological child. Reportedly had been named as power of consumer attorney by the patient, and granddaughter was on the paperwork reportedly as well. Hospital Course Hospital Course Patient was admitted to the hospital further evaluation and management. On admission she was found to be in severe acute metabolic encephalopathy along with acute kidney injury, hypernatremia, secondary dehydration. There were also concerns for SIRS response with concerns for infection of unknown source. She was started on IV hydration, broad-spectrum IV antibiotics. Various etiologies for metabolic encephalopathy including hypothermia, hypothyroidism, stroke ruled out. Patient was found to be cachectic. Further elaboration of patient's past medical history was later found out by talking in detail with her primary caregiver/granddaughter Ms. Valdovinos and her primary care's office. Medical reconciliation was done. With IV hydration her acute kidney injury and electrolyte abnormalities resolved. Patient finished a 5-day course of Zosyn though her cultures during hospitalization remain negative. Patient's mentation came back to her baseline though she remained physically deconditioned. She was seen by physical therapy team and diet was advanced as per speech therapy. Patient was also found to have other multiple electrode abnormalities and is at a higher risk of refeeding syndrome. She will need to be on oral magnesium and phosphorus for now going forward. She was also found to have injuries on the left hand. Fractures are ruled out with multiple x-rays. She did have superficial injury for which she needs Betadine wet-to-dry dressings going forward twice daily. For further rehabitation safe discharge planning was discussed in detail with the patient and they verbalized understanding is agreeable to go to SNF. She has been discharged in hemodynamically stable condition to SNF for further rehabitation. Physical Exam Narrative: Less dehydrated, cachectic Const: COMMON NORMALS: patient oriented x3 and alert GENERAL APPEARANCE: cooperative, comfortable, frail appearing and well hydrated NUTRITIONAL APPEARANCE: cachectic ORIENTATION/CONSCIOUSNESS: Yes awake, Yes oriented to person, Yes oriented to time and Yes confused HENMT: COMMON NORMALS: oropharynx normal Eye: OTHER: pupils bilaterally equal and reactive Neck/C-Spine: COMMON NORMALS: no JVD Resp: COMMON NORMALS: normal respiratory effort and clear to auscultation bilaterally AUSCULTATION: clear to auscultation bilaterally Cardio: COMMON NORMALS: no JVD, regular rhythm, S1 normal heart sound present, S2 normal heart sound present and No murmurs present (Cardio) RATE: tachycardic RHYTHM: regular rhythm HEART SOUNDS: S1 normal heart sound present and S2 normal heart sound present GI: COMMON NORMALS: Normal to inspection, nondistended, normoactive bowel sounds present, Soft to palpation and non-tender PALPATION: Yes Soft to palpation Extremity: COMMON NORMALS: no joint enlargement and no pedal edema NARRATIVE EXTREMITY EXAM: L hand dorsal wound w eschar OTHER: Prior injury/scar LLE Neuro: COMMON NORMALS: patient oriented x3 and moves all extremities SENSORIUM/ORIENTATION: Yes alert, Yes oriented to person and Yes oriented to time Skin: NARRATIVE SKIN EXAM: Thin dry skin. Urinary Catheter Management: James: Cath Placed During This Visit: yes Reason for Continuing Indwelling Catheter: Accurate Measurement of Urinary Output in Critically Ill Patients Urinary Catheter Date of Insertion: 05/01/23 Urinary Catheter Time of Insertion: 17:00 Discharge Data Studies Completed and Pending Completed Studies During Hospitalization Category Date Time Status CT abdomen pelvis wo con [id number] Stat Cat Scan 05/01/23 07:[address] head wo con* [id number] Stat Cat Scan 05/01/23 06:[address] head wo con* [id number] Stat Cat Scan 05/02/23 19:45 Completed XR chest 1V portable [id number] Stat Exams 05/01/23 06:00 Completed XR elbow LT 2V [id number] Routine Exams 05/02/23 19:57 Completed XR hand LT 2V [id number] Routine Exams 05/02/23 19:57 Completed XR shoulder LT min 2V* [id number] Routine Exams 05/02/23 19:57 Completed MR head wo con* [id number] Routine MRI 05/03/23 08:00 Completed CV carotid duplex BI* [id number] Routine Ultrasound 05/02/23 20:10 Completed CV. echo complete* [id number] Routine Ultrasound 05/02/23 12:49 Completed Pending at discharge Category Date Time Status Blood Cultures ([facility]) Routine Lab 05/01/23 08:13 Results Blood Cultures ([facility]) Routine Lab 05/01/23 08:16 Results MAG [Magnesium] AM LABS Lab 05/07/23 04:00 Ordered MAG [Magnesium] AM LABS Lab 05/08/23 04:00 Ordered PHOS [Phosphorus] AM LABS Lab 05/07/23 04:00 Ordered PHOS [Phosphorus] AM LABS Lab 05/08/23 04:00 Ordered SARS Covid-2 Antigen Routine Lab 05/06/23 10:09 Ordered Sputum Culture and Gram Stain Stat Lab 05/03/23 22:20 Results Radiology Impressions Chest X-Ray 05/01/23 06:00 IMPRESSION: No acute findings. Abdomen/Pelvis CT 05/01/23 07:05 IMPRESSION: 1. Nonobstructing 4.4 mm left renal calculus. 2. Diverticulosis of the sigmoid colon 3. Multiple splenic granulomas 4. Multilevel compression the endplates of thoracic lumbar bodies as described above. This is most severely seen at the L4 level. Head CT 05/02/23 19:45 IMPRESSION: 1. No acute intracranial abnormality. 2. Consider MRI, which is more sensitive for detecting acute ischemic changes, if clinically indicated. Elbow X-Ray 05/02/23 19:57 IMPRESSION: No acute findings. Hand X-Ray 05/02/23 19:57 IMPRESSION: No acute findings. Shoulder X-Ray 05/02/23 19:57 IMPRESSION: No acute findings. Laboratory Results WBC 6.26 10^3/uL (3.29-11.43) 05/06/23 04:40 RBC 2.62 10^6/uL (3.85-5.65) L 05/06/23 04:40 Hgb 8.30 g/dL (11.27-16.99) L 05/06/23 04:40 Hct 25.2 % (36-47) L 05/06/23 04:40 MCV 96.2 fl (85-98) 05/06/23 04:40 MCH 31.7 pg (27-33) 05/06/23 04:40 MCHC 32.9 g/dL (30-55) 05/06/23 04:40 RDW 13.5 % (12.1-15.1) 05/06/23 04:40 Plt Count 123 10^3/cmm (157-399) L 05/06/23 04:40 MPV 10.7 fL (7.4-10.4) H 05/06/23 04:40 Neut % (Auto) 68.0 % 05/06/23 04:40 Lymph % (Auto) 12.6 % 05/06/23 04:40 Victoria % (Auto) 12.9 % 05/06/23 04:40 Eos % (Auto) 5.6 % 05/06/23 04:40 Baso % (Auto) 0.3 % 05/06/23 04:40 Neut # (Auto) 4.25 10^3/uL (1.8-7.7) 05/06/23 04:40 Lymph # (Auto) 0.8 10^3/uL (0.8-4.8) 05/06/23 04:40 Victoria # (Auto) 0.8 10^3/uL (0.2-0.9) 05/06/23 04:40 Eos # (Auto) 0.4 10^3/uL (0.0-0.8) 05/06/23 04:40 Baso # (Auto) 0.0 10^3/uL (0.0-0.1) 05/06/23 04:40 Nucleated RBC % (auto) 0 % 05/06/23 04:40 Nucleated RBCs # 0.0 /100WBC 05/06/23 04:40 PT 13.20 SECONDS (12.1-14.9) 05/01/23 06:20 INR 0.98 (0.8-1.2) 05/01/23 06:20 APTT 20.7 SECONDS (23.9-36.7) L 05/01/23 06:20 Specimen Type Arterial 05/01/23 06:18 Sample Site Brachial, right 05/01/23 06:18 ABG pH 7.35 (7.35-7.45) 05/01/23 06:18 ABG pCO2 44.8 mmHg (35-45) 05/01/23 06:18 ABG pO2 76.4 mmHg (80.0-100.0) L 05/01/23 06:18 ABG PO2/FiO2 Ratio 0 05/01/23 06:18 ABG HCO3 24.5 mmol/L (22-26) 05/01/23 06:18 ABG O2 Saturation 94.3 05/01/23 06:18 ABG Base Excess -1.4 mmol/L (-2.0-2.0) 05/01/23 06:18 Wade Test Pos 05/01/23 06:18 A-a O2 Gradient 9.3 mmHg (5-10) 05/01/23 06:18 Hematocrit 40.3 % (37-47) 05/01/23 06:18 Hgb O2 Saturation 93.1 % (95-100) L 05/01/23 06:18 Carboxyhemoglobin 0.9 %THgb (0.4-20.1) 05/01/23 06:18 Methemoglobin 0.4 % (0.4-1.5) 05/01/23 06:18 Total Hemoglobin 13.2 g/dL (12-16) 05/01/23 06:18 Sodium 143.0 mmol/L (131-143) 05/01/23 06:18 Potassium 4.4 mmol/L (3.5-5.0) 05/01/23 06:18 Glucose 136.0 mg/dL (70-115) H 05/01/23 06:18 Ionized Calcium 1.5 mmol/L (1.1-1.4) H 05/01/23 06:18 O2 Delivery Device Nc 05/01/23 06:18 O2 Liters/Min 2.0 % 05/01/23 06:18 FiO2 28.0 % 05/01/23 06:18 Fiberline Supervisor ID [email or web address] 05/01/23 06:18 Sodium 140 mmol/L (136-145) 05/06/23 04:40 Potassium 3.3 mmol/L (3.5-5.1) L 05/06/23 04:40 Chloride 107 mmol/L (98-107) 05/06/23 04:40 Carbon Dioxide 22 mmol/L (22-29) 05/06/23 04:40 Anion Gap 14.3 (5-19) 05/06/23 04:40 BUN 12 mg/dL (8-23) 05/06/23 04:40 Creatinine 0.6 mg/dL (0.5-0.9) 05/06/23 04:40 GFR Calculation Not Reportable 05/06/23 04:40 Glucose 98 mg/dL (65-115) 05/06/23 04:40 POC Glucose 155 mg/dL (70-110) H 05/02/23 23:27 Estimat Average Glucose 97 05/03/23 04:42 Hemoglobin A1c 5.0 % (4.0-6.0) 05/03/23 04:42 Calculated Osmolality 290 mOsm/kg (285-295) 05/06/23 04:40 Lactic Acid 2.1 mmol/L (0.5-2.2) 05/01/23 06:00 Lactic Acid (Sepsis) 2.1 mmol/L (0.5-2.2) 05/01/23 09:25 Calcium 8.5 mg/dL (8.5-10.5) 05/06/23 04:40 Phosphorus 2.8 mg/dL (2.5-4.5) 05/06/23 04:40 Magnesium 1.3 mg/dL (1.7-2.3) L 05/06/23 04:40 Iron 18 ug/dL (37-145) L 05/02/23 04:35 TIBC 239 mcg/dl 05/02/23 04:35 % Saturation 7.5 % (20-50) L 05/02/23 04:35 Unsat Iron Binding 221 ug/dL (112-347) 05/02/23 04:35 Total Bilirubin 0.3 mg/dL (0.15-1.2) 05/06/23 04:40 AST 16 U/L (0-32) 05/06/23 04:40 ALT 9 U/L (0-33) 05/06/23 04:40 Alkaline Phosphatase 49 U/L (35-105) 05/06/23 04:40 Ammonia 35 umol/L (11-51) 05/01/23 09:25 Creatine Kinase 166 U/L (26-192) 05/01/23 08:10 Troponin T Baseline 25 ng/L (0-10) H 05/01/23 06:00 Troponin T 120 Minute 23.12 ng/L (0-10) H 05/01/23 08:13 Delta Troponin T -1.88 ABS# (0-10) L 05/01/23 08:13 Troponin T Hi Sens 6Hr 26.05 ng/L (0-10) H 05/01/23 12:04 Troponin T Hi Sens 6Hr Delta 1.05 ng/L (0-12) 05/01/23 12:04 Total Protein 5.5 g/dL (6.6-8.7) L 05/06/23 04:40 Albumin 2.6 g/dL (3.5-5.2) L 05/06/23 04:40 Globulin 2.9 g/dL (1.3-4.6) 05/06/23 04:40 Aqess-4-Yljdfjzaq 0.4 g/dL (0.2-0.3) H 05/01/23 04:35 Ccvsa-9-Xletnjwst 1.0 g/dL (0.5-0.9) H 05/01/23 04:35 Bltm-3-Qqpjwsat 0.5 g/dL (0.4-0.6) 05/01/23 04:35 Udkl-9-Qpzlhbjx 0.6 g/dL (0.2-0.5) H 05/01/23 04:35 Gamma Globulins 1.2 g/dL (0.8-1.7) 05/01/23 04:35 Abnorm Protein Band 1 Not Reportable 05/01/23 04:35 Triglycerides 71 mg/dL (0-150) 05/03/23 04:42 Cholesterol 131 mg/dL (0-200) 05/03/23 04:42 LDL Cholesterol, Calc 39 mg/dL (50-129) L 05/03/23 04:42 Total VLDL Cholesterol 14 mg/dL (0-30) 05/03/23 04:42 HDL Cholesterol 78 mg/dL (60-100) 05/03/23 04:42 Cholesterol/HDL Ratio 1.68 mg/dL (0.0-4.40) 05/03/23 04:42 Lipase 19 U/L (13-60) 05/01/23 06:20 Vitamin B12 335 pg/mL (232-1245) 05/01/23 08:10 25-OH Vitamin D Total 23 pg/mL (18-72) 05/01/23 04:35 1,25 Dihydroxy Vit D2 23 pg/mL 05/01/23 04:35 1,25 Dihydroxy Vit D3 <8 pg/mL 05/01/23 04:35 Folate 15.6 ng/mL (4.8-37.3) 05/03/23 04:42 Procalcitonin 0.13 ng/mL (0-0.5) 05/02/23 04:35 TSH 5.22 uIU/mL (0.27-4.20) H 05/01/23 08:13 Free T4 1.20 ng/dL (0.82-1.77) 05/01/23 08:13 PTH Intact 19.8 pg/mL (15-65) 05/01/23 06:10 Calcium (PTH Intact) 11.4 mg/dL (8.5-10.5) H 05/01/23 06:10 Urine Color Yellow (Yellow) 05/01/23 06:13 Urine Appearance Clear (CLEAR) 05/01/23 06:13 Urine pH 5 (5-7) 05/01/23 06:13 Ur Specific Fabius 1.020 (1.005-1.030) 05/01/23 06:13 Urine Protein Trace (Negative) 05/01/23 06:13 Urine Glucose (UA) Norm (Normal) 05/01/23 06:13 Urine Ketones Negative (Negative) 05/01/23 06:13 Urine Blood Neg (Negative) 05/01/23 06:13 Urine Nitrate Negative (Negative) 05/01/23 06:13 Urine Bilirubin 2+ (Negative) H 05/01/23 06:13 Urine Urobilinogen Norm mg/dL (Negative) 05/01/23 06:13 Ur Leukocyte Esterase Negative (Negative) 05/01/23 06:13 Urine RBC None /hpf (0-2) 05/01/23 06:13 Urine WBC None /hpf (0-5) 05/01/23 06:13 Ur Squamous Epith Cells None /hpf (0-5) 05/01/23 06:13 Amorphous Sediment Not Reportable 05/01/23 06:13 Urine Bacteria Trace /hpf (NONE) 05/01/23 06:13 U Free Surprise Light Ch 98.23 mg/L (<=32.90) H 05/01/23 16:05 U Abnormal Prot Band 2 Not Reportable 05/01/23 04:35 U Abnormal Prot Band 3 Not Reportable 05/01/23 04:35 Salicylates < 0.3 mg/dL (3-10) L 05/01/23 06:20 Urine Opiates Screen Negative ng/mL (Negative) 05/01/23 06:13 Acetaminophen < 5.0 ug/mL (10-30) L 05/01/23 06:20 Ur Barbiturates Screen Negative ng/mL (Negative) 05/01/23 06:13 Ur Phencyclidine Scrn Negative ng/mL (Negative) 05/01/23 06:13 Ur Amphetamines Screen Negative ng/mL (Negative) 05/01/23 06:13 U Benzodiazepines Scrn Positive ng/mL (Negative) H 05/01/23 06:13 Urine Cocaine Screen Negative ng/mL (Negative) 05/01/23 06:13 U Marijuana (THC) Screen Negative ng/mL (Negative) 05/01/23 06:13 Ethyl Alcohol < 10 mg/dL (0-10) 05/01/23 06:20 Pro Electrophoresis Int See note 05/01/23 04:35 Serum Immunofixation See note 05/01/23 04:35 Free Surprise Light Chains 56.5 mg/L (3.3-19.4) H 05/01/23 04:35 Free Lambda Light Chain 37.6 mg/L (5.7-26.3) H 05/01/23 04:35 Free Surprise/Lambda Ratio 1.50 (0.26-1.65) 05/01/23 04:35 Coronavirus 229E (PCR) Not detected (NOT DETECT) 05/01/23 06:46 Influenza Type A Ag negative (Negative) 05/01/23 06:46 Influenza Type B Ag negative (Negative) 05/01/23 06:46 SARS-CoV-2 (PCR) Not detected (NOT DETECT) 05/01/23 06:46 MRSA (PCR) Not detected (NOT DETECTED) 05/02/23 12:55 Vitals Last Vital Signs Temp 97.9 F 05/06/23 08:30 Pulse 91 05/06/23 10:00 Resp 4 L 05/06/23 10:00 BP 160/71 05/06/23 10:00 Pulse Ox 96 05/06/23 10:00 O2 Del Method Room Air 05/06/23 10:00 O2 Flow Rate 2 05/06/23 08:30 Discharge Plan Discharge Patient Disposition: Xfer SNF Condition: Stable Prescriptions: New Phospha 250 Neutral 250 mg Tablet 1 tab PO BID Qty: 60 0RF magnesium oxide 400 mg (241.3 mg magnesium) Tablet 400 mg PO BID Qty: 60 0RF Continued baclofen 10 mg tablet 10 mg PO TID PRN (Reason: Muscle Spasm) Oysco 500/D 500 mg-5 mcg (200 unit) tablet 1 tab PO 2XD hydroxyzine HCl 50 mg tablet 50 mg PO BEDTIME metoprolol tartrate 50 mg tablet 50 mg PO BID pantoprazole 40 mg tablet,delayed release (DR/EC) 40 mg PO DAILY aspirin 81 mg tablet,delayed release (DR/EC) 81 mg PO DAILY aripiprazole 15 mg tablet 15 mg PO DAILY mupirocin 2 % ointment 1 applic TOPICAL 2XD cilostazol 100 mg tablet 100 mg PO BIDWM Rx Instructions: 30 minutes before or 2 hours after breakfast and dinner levothyroxine 112 mcg tablet 112 mcg PO DAILY primidone 50 mg tablet 50 mg PO DAILY albuterol sulfate [Ventolin HFA] 90 mcg/actuation Hfa Aerosol Inhaler 2 puff INHALATION 3XD Feosol 325 mg (65 mg iron) Tablet 1 mg PO DAILY Remeron 30 mg Tablet 1 mg PO BEDTIME senna 8.6 mg Capsule 2 mg PO 2XD rizatriptan 10 mg tablet,disintegrating 10 mg PO BID PRN (Reason: Headache) amlodipine 5 mg tablet 10 mg PO DAILY Qty: 60 0RF Changed atorvastatin 40 mg tablet 20 mg PO BEDTIME Qty: 15 0RF lisinopril 20 mg tablet 20 mg PO DAILY Qty: 30 0RF Discontinued meloxicam 15 mg tablet 15 mg PO DAILY amitriptyline 100 mg tablet 100 mg PO BEDTIME Discharge Orders: Discharge Order (Routine); Ordered 05/06/23 Ordered By: Amilcar Farris Referrals: [facility] [Outside] ([facility] to arrange appointments /needs/medications for care of patient) Discharge Diet: Cardiac Discharge Activity: Increase activity as tolerated Patient Instructions: Magnesium Oxide (By mouth) (Mag-Ox 400, [employer]..., Medication Safety, Acute Kidney Injury (DC), Malnutrition (DC), Chronic Bronchitis (DC), Chronic Hypertension (DC), Fall Prevention (DC), Encephalopathy (DC), Opioid Safety Activity Restrictions/Additional Instructions: Dysphagia level 4 diet with protein supplements for the each meal, fluid to be extremely thick/pur?ed Betadine wet-to-dry dressing twice daily for left hand Discharge Attestations Time Spent in Discharge Care*: greater than 30 min Specific Discharge Activities: educating patient, educating and/or supporting family/caregiver, discussing with pcp/other providers, discussing with top case assembler/social workers/dc planners, documenting/other paperwork and evaluating patient/reviewing data Status at Discharge: Cognitive status at discharge: mildly impaired cognition, Behavioral status at discharge: cooperative and can be uncooperative, Functional status at discharge: uses cane/walker, Overall status at discharge: patient is progressing back to baseline Quality Metrics Clinical Quality Measures [ No reported AMI, CVA or VTE this stay] Coding Level of Care Code 05128 Total time (in minutes) for Discharge: 60 Diagnoses Acute encephalopathy G93.40 BARAK (acute kidney injury) N17.9 Hypercalcemia E83.52 Hypothyroid E03.9 Compression fracture Patient taking unknown medications Z79.899 Bronchitis J40 Cachexia R64 SIRS (systemic inflammatory response syndrome) R65.10
[2023-05-06] MEDS: amlodipine 10 mg Tablet PO (10:41)
--- NOTE | 2023-05-06 11:06 | PC.NURSE ---
Wound dressing changed per Dr. Farris wound care orders, patient tolerated well. James catheter removed, patient also tolerated this well. Patient states she is, ready to go get some therapy at [facility]. She is in good spirits at this time. Patient educated on wound care and voiding after catheter removal, verbalizes understanding.
--- NOTE | 2023-05-06 12:13 | PC.SOCIAL ---
IMM Updated Updated pt on IMM. No questions voiced. Provided pt a copy. Initialed, dated, & timed copy in chart.
[2023-05-06 12:27] LABS: SARS Covid-2 Antigen negative (Negative)
--- NOTE | 2023-05-06 12:43 | PC.NURSE ---
Report called to [facility].
[2023-05-06] MEDS: pantoprazole 40 mg SDV IVP (12:58)
--- NOTE | 2023-05-06 14:09 | PC.NURSE ---
At approximately 1350 patient in care of transport, Mahendra, from [facility]. Daughter at bedside, patient belongings sent with daughter. IV removed without complication. Patient on room air, one assist to wheel chair. Patient AOX4. Patient chart packet with transport in back of wheelchair. COVID negative result included with paperwork.
== END 2023-05-06 14:13 | disposition skilled nursing facility (03) | DRG 70 ==
LOC: ER 09:55 → ER IP 11:51 → ICU 12:55
PROVIDERS: Family Medicine; Admitting Provider Internal Medicine; Emergency Provider Family Medicine; Visit Provider Student in an Organized Health Care Education/Training Program
DX: G93.41 Metabolic encephalopathy (principal); E43 Unspecified severe protein-calorie malnutrition; J45.901 Unspecified asthma with (acute) exacerbation; R64 Cachexia; Z68.1 Body mass index [BMI] 19.9 or less, adult; N17.9 Acute kidney failure, unspecified; E87.0 Hyperosmolality and hypernatremia; R65.10 Systemic inflammatory response syndrome (SIRS) of non-infectious origin without acute organ dysfunction; L03.114 Cellulitis of left upper limb; M48.54XA Collapsed vertebra, not elsewhere classified, thoracic region, initial encounter for fracture; M48.56XA Collapsed vertebra, not elsewhere classified, lumbar region, initial encounter for fracture; I10 Essential (primary) hypertension; E03.9 Hypothyroidism, unspecified; F17.210 Nicotine dependence, cigarettes, uncomplicated; Z66 Do not resuscitate; R29.810 Facial weakness; E86.0 Dehydration; S60.922A Unspecified superficial injury of left hand, initial encounter; X58.XXXA Exposure to other specified factors, initial encounter; Y92.9 Unspecified place or not applicable
CPT/HCPCS: 36415; 36416; 36592; 36600; 51702; 70450; 70551; 71045; 73030; 73070; 73120; 74176; 80048; 80051; 80053; 80061; 80306; 80307; 81001; 82140; 82310; 82330; 82550; 82607; 82652; 82746; 82805; 82962; 83036; 83540; 83550; 83605; 83690; 83735; 83883; 83970; 84100; 84145; 84155; 84156; 84165; 84439; 84443; 84484; 85025; 85610; 85730; 86334; 86335; 86403; 87040; 87070; 87205; 87426; 87449; 87635; 87641; 87804; 92523; 92526; 92610; 93005; 93306; 93880; 94640; 94664; 96360; 96372; 96376; 97110; 97116; 97161; 97166; 97530; 97535; 99285; C9113; J0360; J0878; J1644; J1756; J2270; J2405; J2543; J3475; J3490; J7030; J7040; J7042

== ENCOUNTER 2023-05-21 02:01 | Observation (INO) | payer MEDICARE, MEDICAID, SELFPAY ==
[2023-05-21] VITALS (7 sets, daily range): BP systolic 87–117; BP diastolic 44–63; PULSE 91–129; RESP 16–24; TEMP 36.2–36.7; O2SAT 92–96; BMI 16.7
--- NOTE | 2023-05-21 02:15 | ECG_ITS ---
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 Measurements Intervals Jenkins Rate: 127 P: 0 WV: 0 QRS: 66 QRSD: 86 T: 97 QT: 319 QTc: 464 Interpretive Statements SINUS T[address] DEVIATION AND MODERATE T-WAVE ABNORMALITY, CONSIDER LATERAL ISCHEMIA [-0.1+ mV T-WAVE IN I/aVL/V5/V6] Compared to ECG 05/02/2023 03:19:07 T-wave abnormality now present Possible ischemia now present Myocardial infarct finding no longer present Electronically Signed On 05-21-2023 5:53:56 PUMPER GAGER by Mason Prince M.D. [email or web address]
--- NOTE | 2023-05-21 02:16 | XRR_ITS ---
PROCEDURE INFORMATION: Exam: XR Chest Exam date and time: 05/21/2023 2:32 AM Age: 77 years old Clinical indication: Other: Ams/vomiting; Prior surgery; Surgery date: 6+ months; Surgery type: Carotid endarterectomy; Patient HX: AMS with vomiting; Additional info: Altered mental status TECHNIQUE: Imaging protocol: Radiologic exam of the chest. Views: 1 view. COMPARISON: CR (CHEST, ) 05/01/2023 6:21 AM FINDINGS: Tubes, catheters and devices: Surgical clips appreciated over the right neck base. Lungs: Bibasilar, rtfuh-cstjxsb-lbwf-left, linear/granular opacities. No focal consolidations. Pleural spaces: Slight blunting of the right costophrenic angle. Heart/Mediastinum: Stable appearance of the cardiomediastinal silhouette. Bones/joints: Severe degenerative changes of the visualized osseous structures. Organs: Status post cholecystectomy. XR/XR chest 1V portable [id number] IMPRESSION: Right basilar small pleural effusion with associated atelectasis. Given history, may also represent aspiration. Superimposed infection is not ruled out.
--- NOTE | 2023-05-21 02:24 | W.ED.NAVMDI ---
HPI - Nausea/Vomiting/Diarrhea General: Chief complaint: Nausea/Vomiting/Diarrhea Stated complaint: vomiting mentally unaware occasionally Time Seen by Provider: 05/21/23 02:04 History of Present Illness: Patient presents to the ER with her daughter at the bedside. Patient daughter states she has been having episodes of nausea and vomiting since yesterday. Patient was recently seen here for altered mental status and discharged [facility]. Patient was here approximately 1 day when daughter took her out to go to a doctor's visit and they called them and said that her insurance will no longer cover them so patient has been living at her daughter's house since then. Appears somewhat alert and can answer simple questions. Upon arrival was noted patient's heart rate 129 with a blood pressure of 87/48. Review of Systems General: Reports: 10 or more systems reviewed and unremarkable except in HPI and below PFSH ED PFSH: Medical History CVA (cerebral vascular accident) Depression Crush injury of leg Asthma HTN (hypertension) Hypothyroid Surgical History History of surgery on lower extremity Social History Smoking and tobacco/nicotine status: current every day tobacco/nicotine user Marital status: / Physical Exam Const: COMMON NORMALS: no acute distress, average body habitus, no limitations, healthy appearing, alert and well nourished HENMT: COMMON NORMALS: normocephalic, atraumatic, hearing grossly normal bilaterally, external ears normal, Normal external nose present, moist oral mucous membranes and oropharynx normal HEAD & SCALP: normocephalic and atraumatic NOSE: Normal external nose present EXTERNAL EAR: Yes external ears normal Eye: COMMON NORMALS: Equal, round and reactive pupils present, EOMs intact bilaterally, conjunctivae normal and no scleral icterus CONJUNCTIVA: Yes conjunctivae normal PUPIL: Yes Equal, round and reactive pupils present Neck/C-Spine: COMMON NORMALS: no JVD Chest: COMMONS NORMALS: normal inspection of the chest and normal palpation of entire chest wall Resp: COMMON NORMALS: normal respiratory effort, No retractions, No use of accessory muscles and clear to auscultation bilaterally AUSCULTATION: clear to auscultation bilaterally Cardio: COMMON NORMALS: no JVD, regular rhythm, S1 normal heart sound present, S2 normal heart sound present, No gallops present (Cardio), No clicks present (Cardio) and No murmurs present (Cardio); negative for regular rate (Tachycardic) RATE: abnormal rate (Tachycardic) RHYTHM: regular rhythm HEART SOUNDS: S1 normal heart sound present and S2 normal heart sound present GI: COMMON NORMALS: Normal to inspection, nondistended, normoactive bowel sounds present, Soft to palpation, non-tender, No hepatosplenomegaly present and no masses PALPATION: Yes Soft to palpation and Yes No hepatosplenomegaly present Extremity: NARRATIVE EXTREMITY EXAM: Negative bilateral lower extremity edema Neuro: SENSORIUM/ORIENTATION: Yes alert Course Vital Signs: Vital signs: Vital Signs Temperature 98.1 F 05/21/23 02:06 Pulse Rate 113 H 05/21/23 02:31 Respiratory Rate 24 H 05/21/23 02:31 Blood Pressure 96/57 05/21/23 02:31 Pulse Oximetry 96 05/21/23 02:31 Oxygen Delivery Me thod Room Air 05/21/23 02:31 MDM - Nausea/Vomiting/Diarrhea Medical Decision Making Patient presents to the ER with a heart rate 129 beats a minute, patient had an EKG performed that showed atrial flutter/tachycardia with RVR type pattern. IV was started. Patient was given a bolus 1 L normal saline and 5 mg of IV Cardizem. This slowed her heart rate down to approximate 110 bpm. Blood pressure improved from 87/48 up to 111/54. Lab work was obtained which showed patient is in acute renal failure with a BUN of 74 and creatinine of 3.7, white blood cell count 7.59 hemoglobin hematocrit 10.6/32.0, potassium of 5.2, initial troponin 39, patient denies chest pain. Chest x-ray shows right basilar pleural effusion with associated atelectasis. Patient was discussed with Dr. Meza. Will place patient observation we will get a noncontrast CT scan of the abdomen pelvis. Differential Diagnosis Likely gastroenteritis; Unlikely traveler's diarrhea, food poisoning, clostridium difficile infection, drug-induced nausea and vomiting or dehydration Medical Records I reviewed the patient's medical records. Lab Data I reviewed the patient's lab results. 05/21/23 02:28 05/21/23 02:28 Radiology Impressions Chest X-Ray 05/21/23 02:16 IMPRESSION: Right basilar small pleural effusion with associated atelectasis. Given history, may also represent aspiration. Superimposed infection is not ruled out. Laboratory Results WBC 7.59 10^3/uL (3.29-11.43) 05/21/23 02: RBC 3.23 10^6/uL (3.85-5.65) L 05/21/23 02: Hgb 10.60 g/dL (11.27-16.99) L 05/21/23 02: Hct 32.0 % (36-47) L 05/21/23 02: MCV 99.1 fl (85-98) H 05/21/23 02: MCH 32.8 pg (27-33) 05/21/23 02: MCHC 33.1 g/dL (30-55) 05/21/23 02: RDW 15.3 % (12.1-15.1) H 05/21/23 02: Plt Count 235 10^3/cmm (157-399) 05/21/23 02: MPV 9.4 fL (7.4-10.4) 05/21/23 02: Neut % (Auto) 73.4 % 05/21/23 02: Lymph % (Auto) 14.9 % 05/21/23 02: [place] % (Auto) 9.7 % 05/21/23 02: Eos % (Auto) 1.3 % 05/21/23 02: Baso % (Auto) 0.3 % 05/21/23 02: Neut # (Auto) 5.57 10^3/uL (1.8-7.7) 05/21/23 02: Lymph # (Auto) 1.1 10^3/uL (0.8-4.8) 05/21/23 02: [place] # (Auto) 0.7 10^3/uL (0.2-0.9) 05/21/23 02: Eos # (Auto) 0.1 10^3/uL (0.0-0.8) 05/21/23 02: Baso # (Auto) 0.0 10^3/uL (0.0-0.1) 05/21/23 02:28 Nucleated RBC % (auto) 0 % 05/21/23 02:28 Nucleated RBCs # 0.0 /100WBC 05/21/23 02:28 PT 13.80 SECONDS (12.1-14.9) 05/21/23 02:28 INR 1.02 (0.8-1.2) 05/21/23 02:28 Sodium 140 mmol/L (136-145) 05/21/23 02:28 Potassium 5.2 mmol/L (3.5-5.1) H 05/21/23 02:28 Chloride 98 mmol/L (98-107) 05/21/23 02:28 Carbon Dioxide 26 mmol/L (22-29) 05/21/23 02:28 Anion Gap 21.2 (5-19) H 05/21/23 02:28 BUN 74 mg/dL (8-23) H 05/21/23 02:28 Creatinine 3.7 mg/dL (0.5-0.9) H 05/21/23 02:28 GFR Calculation Not Reportable 05/21/23 02:28 Glucose 116 mg/dL (65-115) H 05/21/23 02:28 Calculated Osmolality 313 mOsm/kg (285-295) H 05/21/23 02:28 Lactic Acid 1.6 mmol/L (0.5-2.2) 05/21/23 02:28 Calcium 10.2 mg/dL (8.5-10.5) 05/21/23 02:28 Phosphorus 5.5 mg/dL (2.5-4.5) H 05/21/23 02:28 Magnesium 1.9 mg/dL (1.7-2.3) 05/21/23 02:28 Total Bilirubin 0.3 mg/dL (0.15-1.2) 05/21/23 02:28 AST 13 U/L (0-32) 05/21/23 02:28 ALT 10 U/L (0-33) 05/21/23 02:28 Alkaline Phosphatase 69 U/L (35-105) 05/21/23 02:28 Troponin T Baseline 39 ng/L (0-10) H 05/21/23 02:28 Total Protein 6.9 g/dL (6.6-8.7) 02/10/24 02:28 Albumin 3.9 g/dL (3.5-5.2) 05/21/23 02:28 Globulin 3.0 g/dL (1.3-4.6) 05/21/23 02:28 Procalcitonin 0.17 ng/mL (0-0.5) 05/21/23 02:28 All radiology interpretation(s) finalized by discharge EKG Data EKG 1: I personally reviewed and interpreted this EKG as follows: EKG interpretation date: 05/21/23 EKG interpretation time: 02:15 Prior EKG tracings: available for review Interpretation: Ventricular rate 127 beats minute, QRS duration 86, QTc of 394, atrial flutter/tachycardia with RVR, Discharge Plan Discharge Patient Disposition: Placed in Observation Clinical Impression: Acute renal failure, Tachycardia, Acute hyperkalemia, Elevated troponin Coding Level of Care Code ED Sales Support Engineer for Jose Luis Akbar
[2023-05-21] MEDS: sodium chloride 0.9% 1,000 ML 999 ML IV (02:27)
[2023-05-21] MEDS: dilTIAZem 5 mg/mL SDV 5 mL IVP (02:29)
[2023-05-21 02:34] LABS: Basophils % 0.3 %; Eosinophils # 0.1 10^3/uL (0.0-0.8); Eosinophils % 1.3 %; Lymphocytes # 1.1 10^3/uL (0.8-4.8); Lymphocytes % 14.9 %; Mean Corpuscular HGB Conc 33.1 g/dL (30-55); Mean Corpuscular Hemoglobin 32.8 pg (27-33); Mean Corpuscular Volume 99.1 fl (85-98); Mean Platelet Volume 9.4 fL (7.4-10.4); Monocytes # 0.7 10^3/uL (0.2-0.9); Monocytes % 9.7 %; Neutrophils # 5.57 10^3/uL (1.8-7.7); Neutrophils % 73.4 %; Nucleated Red Blood Cells % 0 %; Platelet Count 235 10^3/cmm (157-399); Red Blood Count 3.23 10^6/uL (3.85-5.65); Red Cell Distribution Width 15.3 % (12.1-15.1); White Blood Count 7.59 10^3/uL (3.29-11.43)
[2023-05-21] MEDS: ondansetron 2 mg/ML SDV 2 mL 4 MG IVP (02:45)
[2023-05-21 02:47] LABS: INR 1.02 (0.8-1.2)
[2023-05-21 02:56] LABS: Alanine Aminotransferase 10 U/L (0-33); Albumin Level 3.9 g/dL (3.5-5.2); Alkaline Phosphatase 69 U/L (35-105); Anion Gap 21.2 (5-19); Aspartate Amino Transferase 13 U/L (0-32); Blood Urea Nitrogen 74 mg/dL (8-23); Calcium 10.2 mg/dL (8.5-10.5); Carbon Dioxide 26 mmol/L (22-29); Chloride 98 mmol/L (98-107); Glucose 116 mg/dL (65-115); Magnesium 1.9 mg/dL (1.7-2.3); Osmolality Calculated 313 mOsm/kg (285-295); Phosphorus 5.5 mg/dL (2.5-4.5); Potassium 5.2 mmol/L (3.5-5.1); Sodium 140 mmol/L (136-145); Total Bilirubin 0.3 mg/dL (0.15-1.2); Total Protein 6.9 g/dL (6.6-8.7); Troponin(5th) Baseline 39 ng/L (0-10)
[2023-05-21 03:27] LABS: Lactic Sepsis W/Reflex 1.6 mmol/L (0.5-2.2)
[2023-05-21 03:33] LABS: Procalcitonin 0.17 ng/mL (0-0.5)
--- NOTE | 2023-05-21 03:59 | CTR_ITS ---
PROCEDURE INFORMATION: Exam: CT Abdomen And Pelvis Without Contrast Exam date and time: 05/21/2023 4:52 AM Age: 77 years old Clinical indication: Nausea and vomiting and other: Roldan; Prior surgery; Surgery date: 6+ months; Surgery type: Gb; Patient HX: N/v with roldan; Additional info: Acute renal failure, n/v TECHNIQUE: Imaging protocol: Computed tomography of the abdomen and pelvis without contrast. Radiation optimization: All CT scans at this facility use at least one of these dose optimization techniques: automated exposure control; mA and/or kV adjustment per patient size (includes targeted exams where dose is matched to clinical indication); or iterative reconstruction. COMPARISON: CT abdomen pelvis wo con [id number] 05/01/2023 7:24 AM RADIATION DOSE METRICS: Total DLP (mGy-cm): 276.34 FINDINGS: Lungs: Right basilar focal consolidation with air bronchograms. Left lower lobe tree-in-bud nodularity. Heart: Base of heart is unremarkable as visualized. Coronary arteries: Severe coronary atherosclerotic disease. Diaphragm: Sliding-type hiatal hernia. Liver: Punctate anterior right hepatic lobe granuloma. Status post cholecystectomy with prominence of the intrahepatic and extrahepatic biliary ductal system, reaching a maximal size of 9 mm at the intrapancreatic portion of the common biliary duct (series 6, image 18). Stable from prior comparison. Gallbladder and bile ducts: See Liver finding. Pancreas: Stable appearance of the pancreas. Spleen: Stable appearance of the spleen with multiple granulomas. Adrenal glands: Normal. No mass. Kidneys and ureters: Stable 5 mm left renal calculus. Stomach and bowel: Unremarkable. No obstruction. No mucosal thickening. Appendix: No evidence of appendicitis. Intraperitoneal space: Unremarkable. No free air. No significant fluid collection. Vasculature: Severe calcified atherosclerotic disease of the visualized aorta and its major branches. Lymph nodes: Unremarkable. No enlarged lymph nodes. Urinary bladder: Severe distension of the urinary bladder without focal mass or lesion. Reproductive: Unremarkable as visualized. Bones/joints: Diffuse severe degenerative changes of the visualized osseous structures. Stable thoracic and lumbar spine wedge deformities. Soft tissues: Unremarkable. CT/CT abdomen pelvis wo con [id number] IMPRESSION: 1. Right basilar focal consolidation with air bronchograms, left lower lobe tree-in-bud nodularity. Correlate with aspiration, infection, recommend clinical follow-up to ensure resolution. 2. Severe distension of the urinary bladder, correlate with history of urinary dysfunction. Otherwise, no acute intra-abdominal findings. 3. Stable appearing multiple wedge deformities of the thoracic and lumbar spine. 4. Stable prominence of the common bile duct and proximal intrahepatic biliary ducts, patient is status post cholecystectomy. 5. Stable sequela of granulomatous disease. 6. Stable left renal calculus.
--- NOTE | 2023-05-21 04:14 | PM.HP ---
Providers/Chief Complaint Admitting Physician: Grant Meza MD Primary Care Provider: Rosita Machuca MD Chief Complaint: vomiting mentally unaware occasionally History of Present Illness Amanda Waldron is a 77 year old female with a past medical history significant for asthma, hypertension, hypothyroidism, and tobacco use disorder who presents to the emergency department with nausea and vomiting x 2 days. Patient endorses associated poor oral intake. Denies alleviating or aggravating factors. Currently without teeth but states dentures are at home and daughter can bring in. She denies fevers, chills, nausea or emesis. Of note, patient was admitted from 05/01/23 to 05/06/23. Records indicate patient presented with acute encephalopathy, found to have acute renal failure with multiple metabolic derangements. There was concern for possible underlying infection due to her systemic inflammatory response syndrome. She was treated with broad-spectrum antibiotics. Cultures remain negative. Her mentation improved back to recent baseline. She was found to have persistent debility and cachexia. She was discharged to [facility] [place]. Her daughter reportedly took her home from the nursing facility the following day after she was reportedly told her insurance was going to cover her stay. Upon presentation to ED, patient found to have tachycardia and soft blood pressure. Labs revealed multiple cormorbidites. Review of Systems Narrative: A complete review of systems was obtained and is negative except as stated in HPI. Medications/Allergies Home Medications Medication Instructions Recorded Confirmed Last Taken Type albuterol sulfate 90 mcg/actuation 2 puff inhalation 3XD 05/02/23 05/02/23 Unknown History aerosol inhaler (Ventolin HFA) aripiprazole 15 mg tablet 15 mg PO DAILY 05/02/23 05/02/23 Unknown History aspirin 81 mg tablet,delayed 81 mg PO DAILY 05/02/23 05/02/23 Unknown History release baclofen 10 mg tablet 10 mg PO TID PRN Muscle Spasm 05/02/23 05/02/23 05/02/23 16:13 History calcium carbonate 500 mg-vitamin 1 tab PO 2XD 05/02/23 05/02/23 Unknown History D3 5 mcg (200 unit) tablet (Oysco 500/D) cilostazol 100 mg tablet 100 mg PO BIDWM 05/02/23 05/02/23 Unknown History ferrous sulfate 325 mg (65 mg 1 mg PO DAILY 05/02/23 05/02/23 Unknown History iron) tablet (Feosol) hydroxyzine HCl 50 mg tablet 50 mg PO BEDTIME 05/02/23 05/02/23 Unknown History levothyroxine 112 mcg tablet 112 mcg PO DAILY 05/02/23 05/02/23 Unknown History metoprolol tartrate 50 mg tablet 50 mg PO BID 05/02/23 05/02/23 Unknown History mirtazapine 30 mg tablet (Remeron) 1 mg PO BEDTIME 05/02/23 05/02/23 Unknown History mupirocin 2 % topical ointment 1 applic topical 2XD 05/02/23 05/02/23 Unknown History pantoprazole 40 mg tablet,delayed 40 mg PO DAILY 05/02/23 05/02/23 Unknown History release primidone 50 mg tablet 50 mg PO DAILY 05/02/23 05/02/23 Unknown History sennosides 8.6 mg capsule (senna) 2 mg PO 2XD 05/02/23 05/02/23 Unknown History rizatriptan 10 mg disintegrating 10 mg PO BID PRN Headache 05/03/23 05/03/23 Unknown History tablet amlodipine 5 mg tablet 10 mg (2 x 5 mg) PO DAILY #60 tabs 05/06/23 05/02/23 Unknown Rx atorvastatin 40 mg tablet 20 mg (1/2 x 40 mg) PO BEDTIME #15 05/06/23 05/02/23 Unknown Rx tabs lisinopril 20 mg tablet 20 mg PO DAILY #30 tabs 05/06/23 05/03/23 Unknown Rx magnesium oxide 400 mg (241.3 mg 400 mg PO BID #60 tabs 05/06/23 Unknown Rx magnesium) tablet sodium di- and 1 tab PO BID #60 tabs 05/06/23 Unknown Rx monophosphate-potassium phos monobasic 250 mg tablet (Phospha Neutral) Allergies Allergy/AdvReac Type Severity Reaction Status Date / Time No Known Allergies Allergy Verified 05/02/23 16:38 PFSH Acute PFSH: Medical History (Updated 05/21/23 @ 05:23 by Grant Meza MD) Hypertension Hypothyroid CVA (cerebral vascular accident) Depression Crush injury of leg Asthma HTN (hypertension) Surgical History History of surgery on lower extremity Social History Smoking and tobacco/nicotine status: current every day tobacco/nicotine user Marital status: / Vitals/I&O/Wt Last Vital Signs Temp 98.1 F 05/21/23 02:06 Pulse 113 H 05/21/23 02:31 Resp 24 H 05/21/23 02:31 BP 96/57 05/21/23 02:31 Pulse Ox 96 05/21/23 02:31 O2 Del Method Room Air 05/21/23 02:31 Weight last 48 hrs Weight 37.648 kg Physical Exam Narrative: General: Patient is awake. Laying in bed. Very frail appearing. Pleasant. Head: Normocephalic. Atraumatic. EOM intact. Neck: No JVD. Cardiovascular: Tachycardic. No gallops. No murmurs. No peripheral edema. Lungs: Clear to auscultation, no use of accessory muscles, no crackles or wheezes. Skin: No jaundice. No rashes. Abdomen: Normal bowel sounds, abdomen soft and nontender. Extremities: No cyanosis or clubbing. Musculoskeletal: No swollen or erythematous joints. Neurological: Moves all 4 extremities. No myoclonus. Data 05/21/23 02:28 05/21/23 02:28 A&P Assessment and plan (1) BARAK (acute kidney injury): Admission BUN/creatinine 74/3.7, previously 12/0.6 on 05/06/2023 Suspect prerenal versus progression to ATN given history Patient is severely dehydrated Associated with hyperphosphatemia Start gentle IV fluids Strict I's and O's Daily weights Daily assessment of volume CT abd/pelvis w/o hydronephrosis, but w/ severe distention; proceed with James catheter placement Hold nephrotoxins Hold most renally cleared medications for now; restart as tolerated Renally dose medications (2) Abnormal radiographic examination: Air bronchograms noted on CT imaging; right worse than left per my read Suspected aspiration Check procal Consider abx Consider speech therapy (3) Acute hyperkalemia: Mild, secondary to renal function Telemetry monitoring Monitor electrolytes (4) Cachexia: Associated with failure to thrive and physical deconditioning Monitor for refeeding Case management/social work consultation (5) Elevated troponin: Acute myocardial injury without evidence of NSTEMI Telemetry monitoring Supportive care (6) Normocytic anemia: Admission hemoglobin 10.6, suspect component of hemoconcentration Monitor blood counts (7) Hypothyroid: TSH 5.22 on 05/01/2023 Continue Synthroid Qualifiers: Hypothyroidism type: unspecified Qualified Code(s): E03.9 - Hypothyroidism, unspecified (8) Hypertension: Hold home antihypertensives given soft blood pressure Qualifiers: Hypertension type: unspecified Qualified Code(s): I10 - Essential (primary) hypertension Plan DVT prophylaxis: Heparin Attestations Medical Necessity Statement*: Patient presents with failure to thrive, found to have acute kidney injury with several associated metabolic derangements with expected hospitalization not to cross 2 midnights. Coding Level of Care Code Acute Code for [facility] Diagnoses BARAK (acute kidney injury) N17.9 Abnormal radiographic examination R93.89 Acute hyperkalemia E87.5 Cachexia R64 Elevated troponin R79.89 Normocytic anemia D64.9 Hypothyroidism, unspecified type E03.9 Hypothyroidism type: unspecified Hypertension, unspecified type I10 Hypertension type: unspecified
--- NOTE | 2023-05-21 05:08 | ECG_ITS ---
[facility] Test Date: 2023-05-21 Pat Name: Amanda Waldron Department: Room: 252 Gender: Female Exerciser Horse: : 1945 Requested By: Lars Guzman Order Number: [id number] Carline MD: Mason Prince M.D. Measurements Intervals [place] Rate: 108 P: 68 MA: 175 QRS: 65 QRSD: 86 T: 73 QT: 314 QTc: 421 Interpretive Statements SINUS TACHYCARDIA POSSIBLE LEFT ATRIAL ENLARGEMENT [-0.1mV P-WAVE IN V1/V2] NONSPECIFIC T-WAVE ABNORMALITY Compared to ECG 05/21/2023 02:15:16 Atrial flutter no longer present Possible ischemia no longer present T-wave abnormality still present Electronically Signed On 05-21-2023 5:58:35 MACHINE FEED OPERATOR by Mason Prince M.D. [id number]
[2023-05-21 06:20] LABS: Add Urine Microscopic? YES; Bilirubin Urine 1+ (Negative); Blood Urine Neg (Negative); Glucose Urine UA Norm (Normal); Ketones Urine Negative (Negative); Leukocyte Esterase Urine Trace (Negative); Nitrate Urine Negative (Negative); Protein Urine Neg (Negative); Urine Appearance SL Hazy (CLEAR); Urine Color Yellow (Yellow); Urobilinogen Urine Norm (Negative); pH Urine 6 (5-7)
[2023-05-21 06:23] LABS: RBC Urine 0-4 /hpf (0-2)
[2023-05-21 06:24] LABS: Bacteria Urine 1+ /hpf; Hyaline Casts Urine 0-4 /lpf; Mucus Urine TRACE /hpf
[2023-05-21 06:29] LABS: Amphetamines Screen Urine Negative (Negative); Barbiturates Screen Urine Positive (Negative); Benzodiazepines Screen Urine Negative (Negative); Cocaine Screen Urine Negative (Negative); Opiate Screen Urine Negative (Negative); PCP Screen Urine Negative (Negative); THC Screen Urine Negative (Negative)
[2023-05-21 07:06] LABS: Troponin 5 2HR 32.43 ng/L (0-10)
[2023-05-21 07:08] LABS: Troponin 5 2HR Delta -6.57 ABS# (0-10)
--- NOTE | 2023-05-21 08:18 | ECG_ITS ---
[facility] Test Date: 2023-05-21 Pat Name: Amanda Waldron Department: Room: 252 Gender: Female Roadability Machine Operator: : 1945 Requested By: Lars Guzman Order Number: [id number] Carline MD: Ajit Cornejo M.D. Measurements Intervals [place] Rate: 121 P: 72 [place]: 152 QRS: 66 QRSD: 88 T: 78 QT: 334 QTc: 475 Interpretive Statements SINUS TACHYCARDIA NONSPECIFIC T-WAVE ABNORMALITY ABNORMAL RHYTHM ECG Compared to ECG 05/21/2023 05:08:56 No significant changes Electronically Signed On 05-21-2023 15:45:27 FACILITIES AND GROUNDS DIRECTOR by Ajit Cornejo M.D. [id number]
--- NOTE | 2023-05-21 08:32 | PC.PHAR ---
PT STATES DAUGHTER TAKES CARE OF MEDICATIONS. LEFT MESSAGE AT 8:30AM 05/21/23. PHARMACY OPENS AT 9AM- WILL FOLLOW UP WITH THEM, WELL.
[2023-05-21] MEDS: levothyroxine 112 mcg Tablet PO (08:39)
[2023-05-21] MEDS: cilostazol 100 mg Tablet PO ×2 (08:39→17:32)
[2023-05-21] MEDS: aspirin 81 mg EC Tablet PO (08:39)
[2023-05-21] MEDS: metoprolol tartrate 50 mg Tablet PO ×2 (08:39→17:32)
[2023-05-21] MEDS: mupirocin oint 22 gm 1 APPLIC TOPICAL ×2 (08:39→17:32)
[2023-05-21 09:17] LABS: Troponin 5 6HR 30.95 ng/L (0-10)
[2023-05-21 09:18] LABS: Troponin 5 6HR Delta -8.05 ng/L (0-12)
--- NOTE | 2023-05-21 09:44 | PC.PHAR ---
WAITING ON PHARMACY TO CALL BACK FOR CLARIFICATION ON ANTIBIOTIC. RECORD SHOWS BACTRIM DS- GUARDIAN STATES IT IS AMOXICILLIN. NO RECORD OF AMOXICILLIN.
--- NOTE | 2023-05-21 11:49 | PC.CHAP ---
Pastoral Care Encounter/Spiritual Assessment Type of Contact [] Declined manager business management visit [] Patient/Family/Request visit [] Outpatient visit [] Follow-up visit [] Physician referral [] Code/Alert [] Routine visit [] Staff referral [] Actively dying [] Patient sleeping [] Family support [] [] Out of room [] Palliative care [] [] Receiving care in room [] Pre-surgical visit [] Trauma [] Long length of stay [] ICU visit [] Other: Relational/Emotional Strength [] Patient feels connected with others/family/visitors/staff [] Distress [] Loneliness/isolation [] Abandonment Spirituality of Patient [] Person of Marci [] Attends Baptism of their Marci [] Believes in Prayer [] Reads Bible or Christianity materials [] There are Spiritual issues to be addressed Orthopedic Mechanic Interventions [] Prayer [] Active listening [] Non-anxious presence [] Spiritual/emotional support [] Crisis/trauma care [] Spiritual counseling [] Bereavement support [] Provided bereavement packet [] Provided Bible/devotional materials [] Provided toy/stuffed animal, coloring book to patient or family member [] Provided Communion [] Anointing/[facility] [] Salvation [] Completed spiritual assessment [] Other: Impact on Illness or Injury [] Angry [] Fearful [] Anxious [] Often cries [] Exhaustion [] Unable to work [] Unable to attend scientologist [] Unable to walk/stand [] Unable to read [] Unable to drive [] Unable to eat/drink [] Unable to sleep [] Unable to be with family [] Patient intubated [] Other: Summary Patient was zoned into her show on TV so I left but i will add her to the follow up form Time spent with patient
[2023-05-21] MEDS: cefTRIAXone 1,000 MG in sodium chloride 0.9% (plus) 50 ML 100 MG IV (12:58)
--- NOTE | 2023-05-21 16:55 | PM.MISC ---
Miscellaneous Note Purpose of Documentation: Overnight labs and H&P reviewed. Creatinine at 3.7. James catheter was placed earlier this morning. Urine output at 600 cc. Start IV fluid normal saline at 75 cc an hour. Monitor creatinine with a.m. labs. Chest x-ray showing right basilar small pleural effusion with associated atelectasis. May have had an aspiration event. Start ceftriaxone and metronidazole empirically. Check HIV and hepatitis C screen.
[2023-05-21] MEDS: metroNIDAZOLE 500 MG Tablet PO (17:32)
[2023-05-21] MEDS: enoxaparin 40 mg/0.4 mL Syringe SUBCUT (17:32)
[2023-05-21] MEDS: sennosides 8.6 mg Tablet PO (17:32)
[2023-05-21] MEDS: sodium chloride 0.9% 1,000 ML 75 ML IV (17:33)
[2023-05-21] MEDS: atorvastatin 40 mg Tablet 20 MG PO (21:10)
[2023-05-22] VITALS (7 sets, daily range): BP systolic 102–135; BP diastolic 53–76; PULSE 87–109; RESP 17–18; TEMP 36.4–36.7; O2SAT 92–97
[2023-05-22 02:53] LABS: Basophils % 0.4 %; Eosinophils # 0.2 10^3/uL (0.0-0.8); Eosinophils % 4.1 %; Hematocrit 28.1 % (36-47); Lymphocytes # 1.5 10^3/uL (0.8-4.8); Mean Corpuscular HGB Conc 31.7 g/dL (30-55); Mean Corpuscular Volume 101.1 fl (85-98); Mean Platelet Volume 9.9 fL (7.4-10.4); Monocytes # 0.5 10^3/uL (0.2-0.9); Monocytes % 9.9 %; Neutrophils # 2.92 10^3/uL (1.8-7.7); Neutrophils % 56.4 %; Nucleated Red Blood Cells % 0 %; Platelet Count 165 10^3/cmm (157-399); Red Blood Count 2.78 10^6/uL (3.85-5.65); Red Cell Distribution Width 15.6 % (12.1-15.1); White Blood Count 5.17 10^3/uL (3.29-11.43)
[2023-05-22 03:09] LABS: Alanine Aminotransferase 8 U/L (0-33); Albumin Level 3.2 g/dL (3.5-5.2); Alkaline Phosphatase 53 U/L (35-105); Anion Gap 12.6 (5-19); Aspartate Amino Transferase 14 U/L (0-32); Blood Urea Nitrogen 49 mg/dL (8-23); Calcium 8.5 mg/dL (8.5-10.5); Carbon Dioxide 25 mmol/L (22-29); Chloride 103 mmol/L (98-107); Globulin 2.9 g/dL (1.3-4.6); Glucose 94 mg/dL (65-115); Osmolality Calculated 295 mOsm/kg (285-295); Potassium 4.6 mmol/L (3.5-5.1); Sodium 136 mmol/L (136-145); Total Bilirubin 0.2 mg/dL (0.15-1.2); Total Protein 6.1 g/dL (6.6-8.7)
[2023-05-22 03:21] LABS: HIV 1 & 2 Antibody Non-Reactive (Non-Reactiv); HIV 1 & 2 Antigen Non-Reactive (Non-Reactiv)
[2023-05-22 03:34] LABS: Hepatitis A Antibody IgM Non-Reactive (Nonreactive); Hepatitis B Core AB, Total Non-Reactive (Nonreactive); Hepatitis B Surface AB < 3.5 (11.5-1000); Hepatitis B Surface Antigen Non-Reactive (Nonreactive); Hepatitis C Virus Antibody Non-Reactive (Nonreactive)
[2023-05-22] MEDS: sodium chloride 0.9% 1,000 ML 75 ML IV (07:01)
[2023-05-22] MEDS: pantoprazole DR 40 mg Tablet PO (09:04)
[2023-05-22] MEDS: aspirin 81 mg EC Tablet PO (09:04)
[2023-05-22] MEDS: levothyroxine 112 mcg Tablet PO (09:04)
[2023-05-22] MEDS: metoprolol tartrate 50 mg Tablet PO (09:04)
[2023-05-22] MEDS: cilostazol 100 mg Tablet PO (09:04)
[2023-05-22] MEDS: metroNIDAZOLE 500 MG Tablet PO (09:04)
[2023-05-22] MEDS: sennosides 8.6 mg Tablet PO (09:04)
[2023-05-22] MEDS: mupirocin oint 22 gm 1 APPLIC TOPICAL ×2 (09:06→16:35)
[2023-05-22] MEDS: cefTRIAXone 1,000 MG in sodium chloride 0.9% (plus) 50 ML 100 MG IV (14:02)
--- NOTE | 2023-05-22 17:01 | P.DS_ITS ---
Discharge Providers Date of Admission: 05/21/23 04:00 Date of Discharge: May 22, 2023 Attending Provider at Admission: Grant Meza MD Attending Provider at Discharge: Velma Montgomery MD Primary Care Provider: Rosita Machuca MD Diagnoses at Discharge Discharge Diagnosis (1) BARAK (acute kidney injury): Status: Acute (2) Abnormal radiographic examination: Status: Acute (3) Acute hyperkalemia: Status: Acute (4) Cachexia: Status: Acute (5) Elevated troponin: Status: Acute (6) Normocytic anemia: Status: Acute (7) Hypothyroid: Status: Acute Qualifiers: Hypothyroidism type: unspecified Qualified Code(s): E03.9 - Hypothyroidism, unspecified (8) Hypertension: Status: Acute Qualifiers: Hypertension type: unspecified Qualified Code(s): I10 - Essential (primary) hypertension Reason for Visit Reason for Visit: vomiting mentally unaware occasionally Brief History: Taken from H&P : Amanda Waldron is a 77 year old female with a past medical history significant for asthma, hypertension, hypothyroidism, and tobacco use disorder who presents to the emergency department with nausea and vomiting x 2 days. Patient endorses associated poor oral intake. patient was admitted from 05/01/23 to 05/06/23. Records indicate patient presented with acute encephalopathy, found to have acute renal failure with multiple metabolic derangements. There was concern for possible underlying infection due to her systemic inflammatory response syndrome. She was treated with broad-spectrum antibiotics. Cultures remain negative. Her mentation improved back to recent baseline. She was found to have persistent debility and cachexia. She was discharged to [facility]. Her daughter reportedly took her home from the nursing facility the following day after she was reportedly told her insurance was going to cover her stay. Hospital Course Hospital Course Upon presentation to ED, patient found to have tachycardia and soft blood pressure. Labs revealed multiple abnormalities including BARAK with cr at 3.5, hyperkalemia. BARAK likely to be pre renal related to dehydration, ACEi use and NSAID use. She was noted to be severely dehydrated. Abdominal CT negative for any obstruction. Bladder was noted to be distended, however she was eventually able to void urine. She received IVF fluid hydration with NS @ 75 cc/hr. Cr improved to 1.4 today. She feels well overall. She is being discharged home with her daughter today in improved state. Therapy notes were reviewed from her last admission. On May 06, 2023, patient had exhibited decreased endurance and decreased strength. She needed minimal to moderate assist at that time. A walker has been ordered at the time of discharge to help with stability and ambulation at home.patient prefers to go back home with daughter rather than SNF this time. Initially there was concern for possible aspiration. Chest x-ray had shown right-sided mild effusion and concern for aspiration. However during the course of her stay here she did not have any fever, she had no white blood cell count, no cough or clinical correlate for pneumonia. Antibiotics were therefore discontinued at discharge. Physical Exam Narrative: General: No acute distress, AO x3 HEENT: PERRLA, pupils bilaterally equal and reactive, pallors not present Chest: Normal vesicular breath sounds, no added sounds, equal good air entry bilaterally CVS: S1-S2 regular, no murmurs, no tachycardia, no gallops, no rubs Abdomen: Soft, nontender, no organomegaly, bowel sounds present Neuro: No focal deficits, no facial deformity, AO x3, power 5/5 in all limbs Urinary Catheter Management: James: Cath Placed During This Visit: yes Reason for Continuing Indwelling Catheter: Other Urinary Catheter Date of Insertion: 05/21/23 Urinary Catheter Time of Insertion: 06:10 Discharge Data Studies Completed and Pending Completed Studies During Hospitalization Category Date Time Status CT abdomen pelvis wo con [id number] Stat Cat Scan 05/21/23 03:59 Completed XR chest 1V portable [id number] Stat Exams 05/21/23 02:16 Completed Pending at discharge Category Date Time Status Blood Culture Stat Lab 05/21/23 06:20 Results Radiology Impressions Chest X-Ray 05/21/23 02:16 IMPRESSION: Right basilar small pleural effusion with associated atelectasis. Given history, may also represent aspiration. Superimposed infection is not ruled out. Abdomen/Pelvis CT 05/21/23 03:59 IMPRESSION: 1. Right basilar focal consolidation with air bronchograms, left lower lobe tree-in-bud nodularity. Correlate with aspiration, infection, recommend clinical follow-up to ensure resolution. 2. Severe distension of the urinary bladder, correlate with history of urinary dysfunction. Otherwise, no acute intra-abdominal findings. 3. Stable appearing multiple wedge deformities of the thoracic and lumbar spine. 4. Stable prominence of the common bile duct and proximal intrahepatic biliary ducts, patient is status post cholecystectomy. 5. Stable sequela of granulomatous disease. 6. Stable left renal calculus. Laboratory Results WBC 5.17 10^3/uL (3.29-11.43) 05/22/23 02:36 RBC 2.78 10^6/uL (3.85-5.65) L 05/22/23 02:36 Hgb 8.90 g/dL (11.27-16.99) L 05/22/23 02:36 Hct 28.1 % (36-47) L 05/22/23 02:36 MCV 101.1 fl (85-98) H 05/22/23 02:36 MCH 32.0 pg (27-33) 05/22/23 02:36 MCHC 31.7 g/dL (30-55) 05/22/23 02:36 RDW 15.6 % (12.1-15.1) H 05/22/23 02:36 Plt Count 165 10^3/cmm (157-399) 05/22/23 02:36 MPV 9.9 fL (7.4-10.4) 05/22/23 02:36 Neut % (Auto) 56.4 % 05/22/23 02:36 Lymph % (Auto) 29.0 % 05/22/23 02:36 [place] % (Auto) 9.9 % 05/22/23 02:36 Eos % (Auto) 4.1 % 05/22/23 02:36 Baso % (Auto) 0.4 % 05/22/23 02:36 Neut # (Auto) 2.92 10^3/uL (1.8-7.7) 05/22/23 02:36 Lymph # (Auto) 1.5 10^3/uL (0.8-4.8) 05/22/23 02:36 [place] # (Auto) 0.5 10^3/uL (0.2-0.9) 05/22/23 02:36 Eos # (Auto) 0.2 10^3/uL (0.0-0.8) 05/22/23 02:36 Baso # (Auto) 0.0 10^3/uL (0.0-0.1) 05/22/23 02:36 Nucleated RBC % (auto) 0 % 05/22/23 02:36 Nucleated RBCs # 0.0 /100WBC 05/22/23 02:36 PT 13.80 SECONDS (12.1-14.9) 05/21/23 02:28 INR 1.02 (0.8-1.2) 05/21/23 02:28 Sodium 136 mmol/L (136-145) 05/22/23 02:36 Potassium 4.6 mmol/L (3.5-5.1) 05/22/23 02:36 Chloride 103 mmol/L (98-107) 05/22/23 02:36 Carbon Dioxide 25 mmol/L (22-29) 05/22/23 02:36 Anion Gap 12.6 (5-19) 05/22/23 02:36 BUN 49 mg/dL (8-23) H 05/22/23 02:36 Creatinine 1.4 mg/dL (0.5-0.9) H 05/22/23 02:36 GFR Calculation Not Reportable 05/22/23 02:36 Glucose 94 mg/dL (65-115) 05/22/23 02:36 Calculated Osmolality 295 mOsm/kg (285-295) 05/22/23 02:36 Lactic Acid 1.6 mmol/L (0.5-2.2) 05/21/23 02:28 Calcium 8.5 mg/dL (8.5-10.5) 05/22/23 02:36 Phosphorus 5.5 mg/dL (2.5-4.5) H 05/21/23 02:28 Magnesium 1.9 mg/dL (1.7-2.3) 05/21/23 02:28 Total Bilirubin 0.2 mg/dL (0.15-1.2) 05/22/23 02:36 AST 14 U/L (0-32) 05/22/23 02:36 ALT 8 U/L (0-33) 05/22/23 02:36 Alkaline Phosphatase 53 U/L (35-105) 05/22/23 02:36 Troponin T Baseline 39 ng/L (0-10) H 05/21/23 02:28 Troponin T 120 Minute 32.43 ng/L (0-10) H 05/21/23 06:23 Delta Troponin T -6.57 ABS# (0-10) L 05/21/23 06:23 Troponin T Hi Sens 6Hr 30.95 ng/L (0-10) H 05/21/23 08:25 Troponin T Hi Sens 6Hr Delta -8.05 ng/L (0-12) L 05/21/23 08:25 Total Protein 6.1 g/dL (6.6-8.7) L 05/22/23 02:36 Albumin 3.2 g/dL (3.5-5.2) L 05/22/23 02:36 Globulin 2.9 g/dL (1.3-4.6) 05/22/23 02:36 Procalcitonin 0.17 ng/mL (0-0.5) 05/21/23 02:28 Urine Color Yellow (Yellow) 05/21/23 06:10 Urine Appearance Sl hazy (CLEAR) A 05/21/23 06:10 Urine pH 6 (5-7) 05/21/23 06:10 Ur Specific [place] 1.010 (1.005-1.030) 05/21/23 06:10 Urine Protein Neg (Negative) 05/21/23 06:10 Urine Glucose (UA) Norm (Normal) 05/21/23 06:10 Urine Ketones Negative (Negative) 05/21/23 06:10 Urine Blood Neg (Negative) 05/21/23 06:10 Urine Nitrate Negative (Negative) 05/21/23 06:10 Urine Bilirubin 1+ (Negative) H 05/21/23 06:10 Urine Urobilinogen Norm mg/dL (Negative) 05/21/23 06:10 Ur Leukocyte Esterase Trace (Negative) H 05/21/23 06:10 Urine RBC 0-4 /hpf (0-2) H 05/21/23 06:10 Urine WBC 5-10 /hpf (0-5) H 05/21/23 06:10 Ur Squamous Epith Cells 5-10 /hpf (0-5) H 05/21/23 06:10 Amorphous Sediment Not Reportable 05/21/23 06:10 Urine Bacteria 1+ /hpf (NONE) H 05/21/23 06:10 Hyaline Casts 0-4 /lpf H 05/21/23 06:10 Urine Mucus Trace /hpf 05/21/23 06:10 Urine Yeast 2+ /hpf H 05/21/23 06:10 Urine Opiates Screen Negative ng/mL (Negative) 05/21/23 02:16 Ur Barbiturates Screen Positive ng/mL (Negative) H 05/21/23 02:16 Ur Phencyclidine Scrn Negative ng/mL (Negative) 05/21/23 02:16 Ur Amphetamines Screen Negative ng/mL (Negative) 05/21/23 02:16 U Benzodiazepines Scrn Negative ng/mL (Negative) 05/21/23 02:16 Urine Cocaine Screen Negative ng/mL (Negative) 05/21/23 02:16 U Marijuana (THC) Screen Negative ng/mL (Negative) 05/21/23 02:16 Hepatitis A IgM Ab Non-reactive (Nonreactive) 05/22/23 02:36 Hep Bs Antigen Non-reactive (Nonreactive) 05/22/23 02:36 Hep Bs Antibody < 3.5 (11.5-1000) L 05/22/23 02:36 Hep B Core Total Ab Non-reactive (Nonreactive) 05/22/23 02:36 Hepatitis C Antibody Non-reactive (Nonreactive) 05/22/23 02:36 HIV 1&2 Ab & HIV 1 Ag Non-reactive (Non-Reactiv) 05/22/23 02:36 HIV 1&2 Antibody Non-reactive (Non-Reactiv) 05/22/23 02:36 Vitals Last Vital Signs Temp 97.5 F L 05/22/23 14:21 Pulse 87 05/22/23 14:21 Resp 17 05/22/23 14:21 BP 105/66 05/22/23 14:21 Pulse Ox 95 05/22/23 14:21 O2 Del Method Room Air 05/22/23 14:21 Discharge Plan Discharge Patient Disposition: Home Condition: Stable Prescriptions: New (DME) DME: Walker Unit See Rx Instructions .Route Qty: 1 0RF Rx Instructions: As directed Continued baclofen 10 mg tablet 10 mg PO TID PRN (Reason: Muscle Spasm) calcium carbonate-vitamin D3 [Oysco 500/D] 500 mg-5 mcg (200 unit) tablet 1 tab PO 2XD hydroxyzine HCl 50 mg tablet 50 mg PO BEDTIME metoprolol tartrate 50 mg tablet 50 mg PO BID pantoprazole 40 mg tablet,delayed release (DR/EC) 40 mg PO DAILY aspirin 81 mg tablet,delayed release (DR/EC) 81 mg PO DAILY aripiprazole 15 mg tablet 15 mg PO DAILY mupirocin 2 % ointment 1 applic TOPICAL 2XD cilostazol 100 mg tablet 100 mg PO BIDWM Rx Instructions: 30 minutes before or 2 hours after breakfast and dinner levothyroxine 112 mcg tablet 112 mcg PO DAILY primidone 50 mg tablet 50 mg PO DAILY albuterol sulfate [Ventolin HFA] 90 mcg/actuation Hfa Aerosol Inhaler 2 puff INHALATION 3XD ferrous sulfate [Feosol] 325 mg (65 mg iron) Tablet 1 mg PO DAILY mirtazapine [Remeron] 30 mg Tablet 1 mg PO BEDTIME senna 8.6 mg Capsule 2 mg PO 2XD rizatriptan 10 mg tablet,disintegrating 10 mg PO BID PRN (Reason: Headache) Phospha 250 Neutral 250 mg Tablet 1 tab PO BID Qty: 60 0RF magnesium oxide 400 mg (241.3 mg magnesium) Tablet 400 mg PO BID Qty: 60 0RF atorvastatin 40 mg tablet 20 mg PO BEDTIME Qty: 15 0RF amitriptyline 100 mg tablet 100 mg PO BEDTIME Changed amlodipine 5 mg tablet 5 mg PO DAILY Qty: 60 0RF Discontinued lisinopril 20 mg tablet 20 mg PO DAILY Qty: 30 0RF meloxicam 15 mg tablet 15 mg PO DAILY sulfamethoxazole-trimethoprim 800-160 mg tablet 1 tab PO BID Discharge Orders: Discharge Order (Routine); Ordered 05/22/23 Ordered By: Velma Montgomery Referrals: Rosita Machuca MD [Primary Care Provider] - 7-10 days (Please call [phone] tomorrow to set up a hospital follow-up appointment to see your PCP. ) Discharge Diet: Usual diet Discharge Activity: Resume usual activity Patient Instructions: Acute Kidney Injury (DC), Urinary Tract Infection in Women (DC), Chronic Hypertension (DC), Opioid Safety Plan of Treatment: Please do not take lisinopril or meloxicam as it can make your kidney function worse. Discharge Attestations Time Spent in Discharge Care*: greater than 30 min Status at Discharge: Cognitive status at discharge: mildly impaired cognition , Behavioral status at discharge: cooperative and can be uncooperative , Quality Metrics Clinical Quality Measures [ No reported AMI, CVA or VTE this stay] Coding Level of Care Code Acute Code for [facility] Fwd Diagnoses BARAK (acute kidney injury) N17.9 Abnormal radiographic examination R93.89 Acute hyperkalemia E87.5 Cachexia R64 Elevated troponin R79.89 Normocytic anemia D64.9 Hypothyroidism, unspecified type E03.9 Hypothyroidism type: unspecified Hypertension, unspecified type I10 Hypertension type: unspecified
--- NOTE | 2023-05-25 13:47 | PC.SOCIAL ---
Social Service Patients daughter calls upset because she has been turned into the state and can no longer be around her mother. She would like for CM to call the state and make sure that someone is checking on the patient. MICHAEL called the number provided and the leather case finisher reports that there is an open case and the daughter is being investigated as the patient Amanda has said that the daughter is taking her medications. She states that the state is aware of everything and is evaluating the situation.
== END 2023-05-22 17:21 | disposition home or self-care (01) ==
LOC: ER 04:05 → MEDSURG 04:11
PROVIDERS: Admitting Provider Internal Medicine; Emergency Provider Emergency Medicine; PCP Emergency Medicine; Visit Provider Student in an Organized Health Care Education/Training Program
DX: N17.9 Acute kidney failure, unspecified (principal); R93.89 Abnormal findings on diagnostic imaging of other specified body structures; E87.5 Hyperkalemia; R64 Cachexia; R79.89 Other specified abnormal findings of blood chemistry; D64.9 Anemia, unspecified; E03.9 Hypothyroidism, unspecified; I10 Essential (primary) hypertension; J45.909 Unspecified asthma, uncomplicated; R00.0 Tachycardia, unspecified; E86.0 Dehydration; Z79.82 Long term (current) use of aspirin; F17.200 Nicotine dependence, unspecified, uncomplicated
CPT/HCPCS: 36415; 51702; 71045; 74176; 80053; 80306; 81001; 83605; 83735; 84100; 84145; 84484; 85025; 85610; 86705; 86706; 86709; 86803; 87040; 87340; 87806; 93005; 96372; 96374; 96375; 99285; G0378; J0696; J1650; J2405; J3490; J7030